=== PATIENT | female | born 1975 | race Caucasian/White ===

== ENCOUNTER 2018-05-28 16:23 | Outpatient (REF) | payer MEDICAID, SELFPAY ==
[2018-05-28 22:56] LABS: Abs Immature Grans 0.02 k/cumm (0.0-0.09); Absolute Basophil Count 0.03 k/cumm (0.0-0.2); Absolute Eosinophil Count 0.15 k/cumm (0.0-0.7); Absolute Lymphocyte Count 3.67 k/cumm (1.2-3.4); Absolute Monocyte Count 0.76 k/cumm (0.11-0.7); Absolute Neutrophil Count 4.81 k/cumm (1.2-6.7); Basophils % 0.3; Eosinophils % 1.6; HCT 41.4 % (36.0-46.0); Immature Grans % 0.2; Lymphocytes % 38.9; Mean Corp. HGB Concentration 33.8 g/dL (32.0-36.0); Mean Corpuscular Hemoglobin 29.9 pg (27.0-33.0); Mean Corpuscular Volume 88.5 fL (80-95); Mean Platelet Volume 11.6 fL (8.0-11.0); Monocytes % 8.1; Neutrophils % 50.9; Platelet Count 274 x1000/uL (130-400); RBC 4.68 m/cumm (4.00-5.20); RBC Distribution Width 13.2 % (11.7-14.6); White Blood Cell Count 9.44 k/cumm (4.4-10.8)
[2018-05-28 23:09] LABS: Anion Gap 8.4 mmol/L (3-11); BUN 7 mg/dL (7-18); CO2 29.6 mmol/L (21.0-32.0); CREATININE 0.96 mg/dL (0.55-1.02); Calcium 9.3 mg/dL (8.5-10.1); Chloride 102 mmol/L (98-107); Glucose 70 mg/dL (70-100); Potassium 3.6 mmol/L (3.5-5.1); Sodium 140 mmol/L (136-145); TSH 2.66 uIU/mL (0.358-3.74)
== END 2018-05-28 16:43 ==
LOC: NCHCN 16:23
PROVIDERS: PCP Family Medicine; Visit Provider Family Medicine
DX: F11.21 Opioid dependence, in remission (principal); R00.2 Palpitations; R10.31 Right lower quadrant pain
CPT/HCPCS: 80048; 83735; 84443; 85025

== ENCOUNTER 2019-06-18 10:37 | Outpatient (REF) | payer MEDICAID, SELFPAY ==
[2019-06-18 21:31] LABS: Abs Immature Grans 0.01 k/cumm (0.0-0.09); Absolute Basophil Count 0.06 k/cumm (0.0-0.2); Absolute Eosinophil Count 0.13 k/cumm (0.0-0.7); Absolute Lymphocyte Count 1.45 k/cumm (1.2-3.4); Absolute Monocyte Count 0.61 k/cumm (0.11-0.7); Eosinophils % 2.2; HCT 38.8 % (36.0-46.0); HGB 12.9 g/dL (12.0-15.5); Immature Grans % 0.2; Lymphocytes % 24.7; Mean Corp. HGB Concentration 33.2 g/dL (32.0-36.0); Mean Corpuscular Hemoglobin 29.7 pg (27.0-33.0); Mean Corpuscular Volume 89.4 fL (80-95); Mean Platelet Volume 12.2 fL (8.0-11.0); Monocytes % 10.4; Neutrophils % 61.5; Platelet Count 235 x1000/uL (130-400); RBC 4.34 m/cumm (4.00-5.20); RBC Distribution Width 13.1 % (11.7-14.6); White Blood Cell Count 5.86 k/cumm (4.4-10.8)
[2019-06-18 22:00] LABS: ALT 34 U/L (14-59); AST 36 U/L (15-37); Albumin 3.6 g/dL (3.4-5.0); Alkaline Phosphatase 92 U/L (46-116); Anion Gap 8.2 mmol/L (3-11); BUN 12 mg/dL (7-18); Bilirubin, Total 0.3 mg/dL (0.2-1.0); C-Reactive Protein 0.53 mg/dL (0.0-0.3); CO2 27.8 mmol/L (21.0-32.0); CREATININE 0.93 mg/dL (0.55-1.02); Calcium 8.9 mg/dL (8.5-10.1); Chloride 105 mmol/L (98-107); Glucose 102 mg/dL (70-100); Potassium 4.1 mmol/L (3.5-5.1); Sodium 141 mmol/L (136-145)
[2019-06-18 22:32] LABS: ESR 17 mm/hr (0-20)
[2019-06-22 11:35] LABS: Hepatitis C Ab w Rflx HCV PCR Negative (NEGAT)
[2019-06-22 12:39] LABS: HIV-1/2 Ag & Ab Screen Negative (NEGAT)
== END 2019-06-18 10:57 ==
LOC: NCHCN 10:37
PROVIDERS: PCP Family Medicine; Visit Provider Family Medicine
DX: R63.4 Abnormal weight loss (principal); E03.9 Hypothyroidism, unspecified; F11.21 Opioid dependence, in remission; Z11.4 Encounter for screening for human immunodeficiency virus [HIV]; Z11.59 Encounter for screening for other viral diseases
CPT/HCPCS: 80053; 85652; 86803; 87389; 84443; 85025; 86140

== ENCOUNTER 2020-01-26 11:40 | Outpatient (REF) | payer MEDICAID, SELFPAY ==
[2020-01-26 21:10] LABS: ALT 63 U/L (14-59); AST 50 U/L (15-37); Albumin 3.5 g/dL (3.4-5.0); Alkaline Phosphatase 105 U/L (46-116); Anion Gap 9.2 mmol/L (3-11); BUN 9 mg/dL (7-18); Bilirubin, Total 0.3 mg/dL (0.2-1.0); CO2 26.8 mmol/L (21.0-32.0); CREATININE 1.03 mg/dL (0.55-1.02); Calcium 8.9 mg/dL (8.5-10.1); Chloride 102 mmol/L (98-107); Estimated GFR 58.76 (mL/min/1.73m2); Glucose 121 mg/dL (74-106); Magnesium 1.8 mg/dL (1.8-2.4); Potassium 4.3 mmol/L (3.5-5.1); Sodium 138 mmol/L (136-145); TSH 1.66 uIU/mL (0.36-3.74); Total Protein 6.7 g/dL (6.4-8.2)
[2020-01-28 06:44] LABS: Vitamin D 25 Total 97.3 ng/ml (30-100)
== END 2020-01-26 12:00 ==
LOC: NCHCN 11:40
PROVIDERS: PCP Family Medicine; Visit Provider Nurse Practitioner Family
DX: R00.2 Palpitations (principal); F41.1 Generalized anxiety disorder
CPT/HCPCS: 80053; 82306; 83735; 84443

== ENCOUNTER 2020-02-18 12:45 | Outpatient (REF) | payer MEDICAID, SELFPAY ==
[2020-02-18 20:59] LABS: ALT 29 U/L (14-59); AST 23 U/L (15-37); Alkaline Phosphatase 81 U/L (46-116); Anion Gap 10.4 mmol/L (3-11); BUN 9 mg/dL (7-18); Bilirubin, Total 0.3 mg/dL (0.2-1.0); CO2 26.6 mmol/L (21.0-32.0); CREATININE 1.15 mg/dL (0.55-1.02); Calcium 9.1 mg/dL (8.5-10.1); Chloride 104 mmol/L (98-107); Estimated GFR 51.75 (mL/min/1.73m2); Glucose 125 mg/dL (74-106); Potassium 4.3 mmol/L (3.5-5.1); Sodium 141 mmol/L (136-145); Total Protein 7.4 g/dL (6.4-8.2)
[2020-02-22 11:32] LABS: HIV-1/2 Ag & Ab Screen Negative (Negative)
[2020-02-22 11:37] LABS: Hepatitis C Ab w Rflx HCV PCR Negative (Negative)
== END 2020-02-18 13:05 ==
LOC: NCHCN 12:45
PROVIDERS: PCP Family Medicine; Visit Provider Family Medicine
DX: F11.21 Opioid dependence, in remission (principal); Z11.4 Encounter for screening for human immunodeficiency virus [HIV]; Z11.59 Encounter for screening for other viral diseases
CPT/HCPCS: 80053; 86803; 87389

== ENCOUNTER 2020-04-07 16:44 | Outpatient (REF) | payer MEDICAID, SELFPAY ==
[2020-04-07 22:06] LABS: Calculated LDL 139 mg/dL (<100); Cholesterol 204 mg/dL (<200); HDL Cholesterol 47 mg/dL (40-60); Triglyceride 93 mg/dL (<150)
[2020-04-11 12:46] LABS: IgA 331 mg/dL (85-499); Interpretation (See Note); Tissue Transglutaminase IgA <1.2 U/mL (<4.0)
== END 2020-04-07 17:04 ==
LOC: NCHCN 16:44
PROVIDERS: PCP Family Medicine; Visit Provider Family Medicine
DX: R13.10 Dysphagia, unspecified (principal); R07.9 Chest pain, unspecified
CPT/HCPCS: 80061; 82784; 83516

== ENCOUNTER 2020-06-16 17:50 | Outpatient (REF) | payer MEDICAID, SELFPAY ==
[2020-06-16 21:58] LABS: Vitamin D 25 Total 72.5 ng/ml (30-100)
[2020-06-16 22:03] LABS: Potassium 4.2 mmol/L (3.5-5.1); Vitamin B12 639 pg/mL (193-986)
== END 2020-06-16 18:10 ==
LOC: NCHCN 17:50
PROVIDERS: PCP Family Medicine; Visit Provider Family Medicine
DX: E87.6 Hypokalemia (principal); E55.9 Vitamin D deficiency, unspecified; R25.2 Cramp and spasm; N95.1 Menopausal and female climacteric states
CPT/HCPCS: 82306; 82607; 83735; 84132

== ENCOUNTER 2021-01-20 15:05 | Outpatient (REF) | payer MEDICAID, SELFPAY ==
[2021-01-20 13:31] LABS: Abs Immature Grans 0.01 10^3/uL (0.0-0.06); Absolute Basophil Count 0.05 10^3/uL (0.0-0.2); Absolute Eosinophil Count 0.27 10^3/uL (0.0-0.7); Absolute Lymphocyte Count 2.41 10^3/uL (1.2-3.4); Absolute Monocyte Count 0.69 10^3/uL (0.1-0.8); Absolute Neutrophil Count 5.33 10^3/uL (1.2-6.7); Basophils % 0.6; Eosinophils % 3.1; HCT 39.6 % (36.0-46.0); Immature Grans % 0.1; Lymphocytes % 27.5; MCH 29.5 pg (27.0-33.0); MCHC 32.8 % (32.0-36.0); MCV 89.8 fL (80-95); MPV 12.1 fL (8.0-11.0); Monocytes % 7.9; Neutrophils % 60.8; Nucleated RBC 0 %; Platelet Count 270 10^3/uL (130-400); RBC 4.41 10^6/uL (3.93-5.22); RDW-SD 42.6 fL; WBC 8.76 10^3/uL (4.4-10.8)
[2021-01-20 14:36] LABS: Anion Gap 9.1 mmol/L (3-11); BUN 8 mg/dL (7-18); CO2 27.9 mmol/L (21.0-32.0); Chloride 104 mmol/L (98-107); Glucose 96 mg/dL (74-106); Potassium 4.4 mmol/L (3.5-5.1); Sodium 141 mmol/L (136-145); TSH 1.07 uIU/mL (0.36-3.74)
== END 2021-01-20 15:06 | disposition home or self-care (01) ==
LOC: NCHCN 15:05
PROVIDERS: PCP Family Medicine; Visit Provider Family Medicine
DX: E03.9 Hypothyroidism, unspecified (principal); D72.819 Decreased white blood cell count, unspecified; N18.30 Chronic kidney disease, stage 3 unspecified
CPT/HCPCS: 80048; 84443; 85025

== ENCOUNTER 2021-09-26 15:20 | Outpatient (REF) | payer MEDICAID, SELFPAY ==
[2021-09-26 17:01] LABS: Anion Gap 7.7 mmol/L (3-11); BUN 11 mg/dL (7-18); CO2 28.3 mmol/L (21.0-32.0); Calcium 9.1 mg/dL (8.5-10.1); Chloride 103 mmol/L (98-107); Glucose 87 mg/dL (74-106); Potassium 4.1 mmol/L (3.5-5.1); Sodium 139 mmol/L (136-145); TSH 1.12 uIU/mL (0.36-3.74)
[2021-09-27 15:29] LABS: COVID-19 RT-PCR UVMMC Result Negative (Negative)
[2021-09-28 05:50] LABS: Vitamin D 25 Total 64.7 ng/mL (30-100)
== END 2021-09-26 15:21 | disposition home or self-care (01) ==
LOC: NCHCN 15:20
PROVIDERS: PCP Family Medicine; Visit Provider Family Medicine
DX: J06.9 Acute upper respiratory infection, unspecified (principal); E03.9 Hypothyroidism, unspecified; E55.9 Vitamin D deficiency, unspecified; Z20.822 Contact with and (suspected) exposure to COVID-19
CPT/HCPCS: 80048; 82306; U0003; 84443

== ENCOUNTER 2022-03-06 02:50 | Emergency (ER) | payer MEDICAID, SELFPAY ==
[2022-03-06 02:58] VITALS: BP 172/84; PULSE 75; RESP 20; TEMP 36.7; O2SAT 100
--- NOTE | 2022-03-06 03:15 | RT.EKG_ITS ---
APPROVED REPORT Exam: Resting ECG Reason for Exam: vomiting, chest pain Patient Location: E HR:71 bpm ECG Measurements Heart Rate 71 AXIS GA 125 P 43 QRSd 86 QRS 77 QT 440 T 50 QTc 478 Conclusion Sinus rhythm...normal P axis, V-rate 60- 99 Physician: no stemi, stable
--- NOTE | 2022-03-06 03:19 | ED.GENADUL_ITS ---
Discharge Plan Disposition Patient Disposition: HOME Condition: Good Discharge Details Clinical Impression: Cannabinoid hyperemesis syndrome Primary Care Provider: Donal Goff ED Provider: Juan Carlos Blum Home Meds and New Rx's Prescriptions: No Action ibuprofen [Advil] 200 MG tablet 600 mg PO Q6H PRN PRN penicillin V potassium 500 MG tablet 500 mg PO QID Qty: 40 0RF hydrocodone-acetaminophen 1 TAB tablet 1 tab PO Q4H PRN PRNQty: 7 0RF Discharge Instructions Instructions: Acute Nausea and Vomiting (ED) Additional Instructions: At this time your symptoms appear consistent with cannabinoid hyperemesis syndrome. Please stick with a bland diet, drink plenty of fluids. If you develop any fever, cough, or worsening chest pain please return for reassessment. If you notice any worsening of your symptoms, or any new symptoms such as vomiting, diarrhea, fever, chills, shortness of breath, chest pain, numbness, weakness, or fainting , please return immediately to the emergency department for reevaluation. Please follow up with your primary care provider as soon as possible for reassessment and reevaluation. As always, it was a pleasure participating in your medical care today. Referrals: Donal Goff [Primary Care Provider] - Medical Decision Making This is a 46-year-old female with a past medical history of hysterectomy, regular marijuana use, methadone use, who presents today for retching and vomiting. Patient states that she recently finished a sealant prescription for dental caries few days ago, she was asymptomatic after that, however at about 10 PM tonight she began having vomiting and diarrhea. She has been unable to stop retching since then. She has had some mild shaking but denies any fever. She admits to mild chest tightness, but denies any tearing or ripping sensation. She denies any alcohol use, but does admit to drinking just a little bit at a wedding a few days ago. She denies any IV or illicit drug otherwise. She denies any other sick contacts. She denies having symptoms like this before. No other complaints at this time. No other modifying factors. Exam demonstrates dry mucous membranes, actively retching female. No blood in her vomitus. For that matter she does not have any vomitus currently. No abdominal pain or tenderness. Differential is highest for gastroenteritis, cyclic vomiting syndrome, with her chest pain a cardiac etiology is certainly on the differential but less likely. Symptoms appear clinically inconsistent with dissection or aneurysm. She has had a hysterectomy, is not on the differential clearly. We will rehydrate, give Compazine and Zofran, evaluate for these etiologies, monitor closely and reassess. With no abdominal pain or bloating whatsoever her symptoms appear inconsistent with small bowel obstruc tion. No indication for emergent imaging currently. 4:04 AM On reassessment patient is feeling much better. She still has some mild chest achiness, but the vomiting and retching has stopped. Laboratory work-up shows mild white count, no bandemia. Electrolytes are stable. Troponin is normal. EKG is unremarkable. No evidence of STEMI. Symptoms at this time are consistent with cyclic vomiting syndrome/cannabinoid hyperemesis syndrome. We will wait for fluids to finish, chest x-ray results return, then expect she will be stable for discharge with her notable improvement so far. 7:13 AM Repeat troponin has returned normal. Patient is able to tolerate p.o. She feels much better. She has been sleeping well. She has been rehydrated with 2 L of normal saline. Chest x-ray shows no evidence of pneumomediastinum or other abnormality. Exam shows no evidence of pneumomediastinum or subcutaneous crepitus. Patient feels well feels comfortable going home. X-ray shows evidence of questionable mild bronchitis, however clinically the patient shows no complaint of this. No cough, no shortness of breath, no fever. No indication for antibiotics at this time. I did discuss with the patient red flags which would represent pneumonia. She understands. I have extensively reviewed the treatment plan and discharge instructions with the patient. I have addressed all patient concerns at this time. The patient was made aware of what symptoms to monitor for that would warrant a return to the emergency department. Discussed the plan with the patient, they demonstrate verbal understanding and agreement with our assessment and plan at this time. The documentation in this chart was dictated using [employer] dictation software. Please excuse any dictation errors. FINDINGS: Lungs: Question mild peribronchial thickening in the lower lobes and minimal subsegmental atelectasis. No consolidation. Pleural spaces: No pleural effusion. No pneumothorax. Heart/Mediastinum: No cardiomegaly. Bones/joints: Unremarkable. IMPRESSION: Question mild bronchitis/interstitial pneumonitis and minimal basilar subsegmental atelectasis Thank you for allowing us to participate in the care of your patient. Dictated and Authenticated by: Michael Phillips MD 03/06/2022 6:11 AM Eastern Time ([place] & [place]) HPI General Date/Time Provider Initiated Documentation: 03/06/22 03:11 . HPI Narrative: This is a 46-year-old female with a past medical history of hysterectomy, regular marijuana use, methadone use, who presents today for retching and vomiting. Patient states that she recently finished a sealant prescription for dental caries few days ago, she was asymptomatic after that, however at about 10 PM tonight she began having vomiting and diarrhea. She has been unable to stop retching since then. She has had some mild shaking but denies any fever. She admits to mild chest tightness, but denies any tearing or ripping sensation. She denies any alcohol use, but does admit to drinking just a little bit at a wedding a few days ago. She denies any IV or illicit drug otherwise. She denies any other sick contacts. She denies having symptoms like this before. No other complaints at this time. No other modifying factors. Related Data Home Medications Medication Instructions Recorded Confirmed hydrocodone 5 mg-acetaminophen 325 1 tab PO Q4H PRN PRN #7 tabs 01/13/13 mg tablet ibuprofen 200 mg tablet (Advil) 600 mg PO Q6H PRN PRN 01/13/13 03/06/22 penicillin V potassium 500 mg 500 mg PO QID #40 tabs 01/13/13 tablet Previous Rx's Medication Instructions Recorded hydrocodone 5 mg-acetaminophen 325 1 tab PO Q4H PRN PRN #7 tabs 01/13/13 mg tablet penicillin V potassium 500 mg 500 mg PO QID #40 tabs 01/13/13 tablet Allergies Allergy/AdvReac Type Severity Reaction Status Date / Time strawberries Allergy Intermediate Hives Uncoded 03/06/22 03:02 General Stated Complaint: Nausea/Vomit/Diar YOGI: 3 Review of Systems All systems reviewed & are unremarkable except as noted in HPI and below PFSH All Active Problems (Updated 03/06/22 @ 05:12 by Juan Carlos Blum DO) Cannabinoid hyperemesis syndrome (Acute) Social History (Reviewed 03/06/22 @ 03:21 by CHELSEA Long Smoking/Tobacco Use Status: Current every day Tobacco Type: cigarettes Smoking risk assessment performed?: Yes Alcohol Intake: current Alcohol Intake frequency: holidays/special occasions only Drug use: Daily Substance use type: marijuana Do you feel safe at home: Yes Do you feel safe in your relationship?: Yes Exam Narrative Exam Narrative: 1.Const: Well-nourished, Well-developed, appearing stated age 2.Eyes: PERRL, no conjunctival injection, and symmetrical lids. 3.ENT: Atraumatic external nose and ears. Dry MM. Neck: Symmetric, trachea midline, No thyromegaly. 4.CVS: +S1/S2, No murmurs or gallops. Peripheral pulses 2+ and equal in all extremities. Brisk capillary refill in all extremities. 5.RESP: Unlabored respiratory effort. Clear to auscultation bilaterally. No wheezes rales or rhonchi 6.GI: Soft, Nontender/Nondistended, No hepatosplenomegaly. No guarding or rebound. Actively retching no pain McBurney's point. Negative Patrick sign. 7.MSK: Normocephalic/Atraumatic, Extremities w/o deformity or ttp No cyanosis or clubbing, Normal movement of all extremities 8.Skin: Warm, Dry. No rashes or lesions. 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 Sensation grossly intact, no focal neurologic deficits. 10.Psych: (AAO) x3. Appropriate mood and affect Course Vital Signs Vital signs: Vital Signs Temperature 36.7 C 03/06/22 02:58 Pulse 75 03/06/22 02:58 Respiratory Rate 20 03/06/22 02:58 Blood Pressure 172/84 H 03/06/22 02:58 Pulse Oximetry 100 03/06/22 02:58 Temperature 36.7 C 03/06/22 02:58 Temperature Source Oral 03/06/22 02:58 Pulse 75 03/06/22 02:58 Respiratory Rate 20 03/06/22 02:58 Respiratory Effort 03/06/22 03:05 Blood Pressure 172/84 H 03/06/22 02:58 Blood Pressure Position Sitting 03/06/22 02:58 Pulse Oximetry 100 03/06/22 02:58 Oxygen Delivery Method Room Air 06/28/22 02:58 Oxygen Flow Rate 0 03/06/22 02:58 Pain Level 8 03/06/22 02:58 PAWSS Have you Been Recently Intoxicated or Drunk Within the Last 30 days?: No Have you Ever Experienced Previous Episodes of Alcohol Withdrawal?: No Have you ever Experienced Withdrawal Seizures?: No Have you ever Experienced Delirium Tremens(DT)s?: No Have you ever undergone Alcohol Rehabilitation Treatment (i.e, inpt ot outpatient treatment programs)?: No Have you ever Experienced Blackouts?: No Have you ever Combined Alcohol with other Downers within the last 90 days?: No Have you ever Combined Alcohol with any other Substance of Abuse during the last 90 days?: No Positive Blood Alcohol level on Presentation? [PCS.BAL]: No Evidence of Increased Autonomic Activity (i.e. HR>120, tremor, sweating, agitation, nausea)?: No Result: 0
[2022-03-06] MEDS: Prochlorperazine 10 MG/2 ML VIAL IVP (03:25)
[2022-03-06] MEDS: Ondansetron 4 MG/2 ML VIAL IVP (03:25)
[2022-03-06] MEDS: Normal Saline 1,000 ML 1000 ML IV ×2 (03:25→05:15)
[2022-03-06 03:32] LABS: Abs Immature Grans 0.07 10^3/uL (0.0-0.06); Absolute Basophil Count 0.08 10^3/uL (0.0-0.2); Absolute Lymphocyte Count 2.11 10^3/uL (1.2-3.4); Basophils % 0.5; Eosinophils % 0.6; HCT 39.7 % (36.0-46.0); HGB 13.3 g/dL (11.2-15.7); Immature Grans % 0.4; Lymphocytes % 12.6; MCH 29.2 pg (27.0-33.0); MCHC 33.5 % (32.0-36.0); MCV 87 fL (80-95); Monocytes % 7.3; Neutrophils % 78.6; Platelet Count 350 10^3/uL (130-400); RBC 4.55 10^6/uL (3.93-5.22); RDW 12.8 % (11.7-14.6); RDW-SD 40.6 fL; WBC 16.75 10^3/uL (4.4-10.8)
[2022-03-06 03:38] LABS: Absolute Monocyte Count 1.22 10^3/uL (0.1-0.8); Absolute Neutrophil Count 13.17 10^3/uL (1.2-6.7)
[2022-03-06 03:43] LABS: ALT 32 U/L (14-59); AST 31 U/L (15-37); Albumin 3.7 g/dL (3.4-5.0); Alkaline Phosphatase 98 U/L (46-116); Anion Gap 10.3 mmol/L (3-11); BUN 11 mg/dL (7-18); Bilirubin, Total 0.2 mg/dL (0.2-1.0); CO2 26.7 mmol/L (21.0-32.0); CREATININE 1.1 mg/dL (0.55-1.02); Calcium 8.9 mg/dL (8.5-10.1); Chloride 104 mmol/L (98-107); Estimated GFR 53.96 (mL/min/1.73m2); Glucose 146 mg/dL (74-106); Potassium 3.4 mmol/L (3.5-5.1); Sodium 141 mmol/L (136-145); Total Protein 7.6 g/dL (6.4-8.2); Troponin I < 50 ng/L (<or=60)
[2022-03-06 03:50] LABS: Lipase 79 U/L (73-393)
--- NOTE | 2022-03-06 04:00 | DI.RAD_ITS ---
Exam(s) XR PORTABLE CHEST AP EXAM: XR PORTABLE CHEST AP CLINICAL HISTORY: vomiting, central chest pain, eval for pneumomedia TECHNIQUE: 2D digital imaging was performed of the chest. One image was obtained. An AP view was ob tained. COMPARISON: No exams were available for comparison FINDINGS: MEDIASTINUM: Normal. HEART: Normal. PULMONARY VASCULATURE: Normal. LUNGS: Clear. PLEURAL SPACE: No pleural effusion or pneumothorax. BONE:Within normal limits for the patient's age. OTHER FINDINGS:Normal. IMPRESSION: No acute pulmonary findings. DATA REPOSITORY: RADIATION DOSE DELIVERED:
[2022-03-06 04:27] VITALS: BP 136/74; PULSE 66; RESP 16; TEMP 36.4; O2SAT 100
[2022-03-06] MEDS: Sucralfate 1 GM TAB PO (05:15)
--- NOTE | 2022-03-06 06:11 | DI.VRAD_ITS ---
PROCEDURE INFORMATION: Exam: XR Chest Exam date and time: 03/06/2022 3:57 AM Age: 46 years old Clinical indication: Patient HX: Vomiting, central chest pain, eval for pneumomedia TECHNIQUE: Imaging protocol: Radiologic exam of the chest. Views: 1 view. COMPARISON: No relevant prior studies available. FINDINGS: Lungs: Question mild peribronchial thickening in the lower lobes and minimal subsegmental atelectasis. No consolidation. Pleural spaces: No pleural effusion. No pneumothorax. Heart/Mediastinum: No cardiomegaly. Bones/joints: Unremarkable. IMPRESSION: Question mild bronchitis/interstitial pneumonitis and minimal basilar subsegmental atelectasis Dictated and Authenticated by: Michael Phillips MD. Ordering:LISS Rangel MD
[2022-03-06 06:17] VITALS: BP 134/83; PULSE 60; RESP 16; TEMP 36.6; O2SAT 99
[2022-03-06 06:52] LABS: Troponin I < 50 ng/L (<or=60)
[2022-03-06 07:13] VITALS: BP 127/72; PULSE 67; RESP 14; TEMP 36.5; O2SAT 100
== END 2022-03-06 07:27 | disposition home or self-care (01) ==
LOC: ER 07:02
PROVIDERS: Emergency Provider Student in an Organized Health Care Education/Training Program; PCP Family Medicine
DX: R11.10 Vomiting, unspecified (principal); F12.90 Cannabis use, unspecified, uncomplicated; R07.9 Chest pain, unspecified
CPT/HCPCS: 36415; 80053; 83690; 93005; 96361; 96374; 96375; 99284; 71045; 84484; 85025; 93010; J0780; J2405

== ENCOUNTER 2022-05-14 02:03 | Emergency (ER) | payer MEDICAID, SELFPAY ==
--- NOTE | 2022-05-14 02:00 | RT.EKG_ITS ---
APPROVED REPORT Exam: Resting ECG Reason for Exam: chest pain Patient Location: E HR:56 bpm ECG Measurements Heart Rate 56 AXIS PA 135 P 73 QRSd 81 QRS 76 QT 500 T 67 QTc 484 Conclusion Sinus bradycardia...rate< 60 Physician: no stemi, stable
[2022-05-14 02:08] VITALS: BP 158/124; PULSE 94; RESP 18; TEMP 36.2; O2SAT 98
--- NOTE | 2022-05-14 02:13 | ED.GENADUL_ITS ---
Discharge Plan Disposition Patient Disposition: HOME Condition: Good Discharge Details Clinical Impression: Nausea & vomiting Primary Care Provider: Donal Goff ED Provider: Juan Carlos Blum Home Meds and New Rx's Prescriptions: No Action ibuprofen [Advil] 200 MG tablet 600 mg PO Q6H PRN PRN penicillin V potassium 500 MG tablet 500 mg PO QID Qty: 40 0RF hydrocodone-acetaminophen 1 TAB tablet 1 tab PO Q4H PRN PRNQty: 7 0RF buprenorphine HCl [Subutex] 8 mg Tablet, Sublingual 12 mg SUBLINGUAL DAILY Discharge Instructions Instructions: Acute Nausea and Vomiting (ED) Additional Instructions: At this time your symptoms have notably improved. Please stick with a bland diet for the next 2 to 3 days. Avoid any spicy or greasy foods. Continue to do your best to avoid marijuana. It takes about 30 days for the marijuana to completely come out of your system. If you notice any worsening of your symptoms, or any new symptoms such as vomiting, diarrhea, fever, chills, shortness of breath, chest pain, numbness, weakness, or fainting , please return immediately to the emergency department for reevaluation. Please follow up with your primary care provider as soon as possible for reassessment and reevaluation. As always, it was a pleasure participating in your medical care today. Referrals: Donal Goff [Primary Care Provider] - Medical Decision Making 47-year-old female with a past medical history of hysterectomy, previous marijuana use that she stopped about 18 days ago, previous methadone use, history of cyclic vomiting syndrome, who presents today for retching and vomiting. Patient states that at about 10 PM this evening which was 4 hours ago she began to suddenly experience nausea vomiting and retching. She has been retching continuously since then. She denies any more vomiting at this time. No blood in her vomitus. She denies any numbness or tingling. She does admit to some mild chest achiness but denies any tearing or ripping sensation. Nothing has made her symptoms better at home. She came to the ER for further assessment. Physical exam demonstrates an actively retching female, dry mucous membranes. No focal abdominal tenderness. Differential is highest for cyclic vomiting syndrome similar to her last visit. Symptoms appear inconsistent with cardiac etiology. Pancreatitis is on the differential but she denies any alcohol use. We will give droperidol, rehydrate, monitor closely and reassess. Isabell-Badillo tear or Boerhaave's is unlikely given no subcutaneous crepitus, however out of an abundance of precaution we will get a portable chest x-ray to evaluate for air. Symptoms seem inconsistent with ileus or obstruction she has no abdominal distention or abdominal pain. 4 AM On reassessment patient has complete resolution of her symptoms. She feels well, chest pain is improved, she feels ready go home and she is asking to be discharged. Mildly elevated white count, appropriate in the setting of vomitin g. Repeat exam shows no signs of an acute surgical abdomen abdominal pain whatsoever. Lipase is normal, troponin normal, EKG benign. Symptoms appear consistent with cyclic vomiting syndrome. Will recommend continued bland diet at home. Droperidol seems to have been very effective for the patient on this episode. Discussed red flags for which to return. Chest pain inconsistent with ACS, dissection or PE. Chest x-ray negative. I have extensively reviewed the treatment plan and discharge instructions with the patient. I have addressed all patient concerns at this time. The patient was made aware of what symptoms to monitor for that would warrant a return to the emergency department. Discussed the plan with the patient, they demonstrate verbal understanding and agreement with our assessment and plan at this time. The documentation in this chart was dictated using [employer] dictation software. Please excuse any dictation errors. FINDINGS: Lungs: Unremarkable. No consolidation. Pleural spaces: Unremarkable. No pleural effusion. No pneumothorax. Heart/Mediastinum: Unremarkable. No cardiomegaly. Bones/joints: Unremarkable. IMPRESSION: No acute findings. Thank you for allowing us to participate in the care of your patient. Dictated and Authenticated by: Bennett Lynch MD 05/14/2022 3:28 AM Eastern Time ([place] & [place]) HPI General Date/Time Provider Initiated Documentation: 05/14/22 02:08 . HPI Narrative: 47-year-old female with a past medical history of hysterectomy, previous marijuana use that she stopped about 18 days ago, previous methadone use, history of cyclic vomiting syndrome, who presents today for retching and vomiting. Patient states that at about 10 PM this evening which was 4 hours ago she began to suddenly experience nausea vomiting and retching. She has been retching continuously since then. She denies any more vomiting at this time. No blood in her vomitus. She denies any numbness or tingling. She does admit to some mild chest achiness but denies any tearing or ripping sensation. Nothing has made her symptoms better at home. She came to the ER for further assessment. Related Data Home Medications Medication Instructions Recorded Confirmed hydrocodone 5 mg-acetaminophen 325 1 tab PO Q4H PRN PRN #7 tabs 01/13/13 mg tablet ibuprofen 200 mg tablet (Advil) 600 mg PO Q6H PRN PRN 01/13/13 03/06/22 penicillin V potassium 500 mg 500 mg PO QID #40 tabs 01/13/13 tablet buprenorphine HCl 8 mg sublingual 12 mg sublingual DAILY 05/14/22 05/14/22 tablet Previous Rx's Medication Instructions Recorded hydrocodone 5 mg-acetaminophen 325 1 tab PO Q4H PRN PRN #7 tabs 01/13/13 mg tablet penicillin V potassium 500 mg 500 mg PO QID #40 tabs 01/13/13 tablet Allergies Allergy/AdvReac Type Severity Reaction Status Date / Time strawberries Allergy Intermediate Hives Uncoded 05/14/22 02:13 General Stated Complaint: Nausea/Vomit/Diar YOGI: 3 Review of Systems All systems reviewed & are unremarkable except as noted in HPI and below PFSH All Active Problems (Updated 05/14/22 @ 04:00 by Juan Carlos Blum DO) Nausea & vomiting (Acute) Social History Smoking/Tobacco Use Status: Current every day Tobacco Type: cigarettes Smoking risk assessment performed?: Yes Alcohol Intake: current Alcohol Intake frequency: holidays/special occasions only Drug use: Daily Substance use type: marijuana Details: States she stopped 18 days ago Do you feel safe at home: Yes Do you feel safe in your relationship?: Yes Exam Narrative Exam Narrative: 1.Const: Well-nourished, Well-developed, appearing stated age 2.Eyes: PERRL, no conjunctival injection, and symmetrical lids. 3.ENT: Atraumatic external nose and ears. Dry MM. Neck: Symmetric, trachea midline, No thyromegaly. No subcutaneous crepitus in the neck or on the chest. 4.CVS: +S1/S2, No murmurs or gallops. Peripheral pulses 2+ and equal in all extremities. Brisk capillary refill in all extremities. 5.RESP: Unlabored respiratory effort. Clear to auscultation bilaterally. No wheezes rales or rhonchi 6.GI: Soft, Nontender/Nondistended, No hepatosplenomegaly. No guarding or rebound. No pain at McBurney's point, negative Patrick sign. 7.MSK: Normocephalic/Atraumatic, Extremities w/o deformity or ttp No cyanosis or clubbing, Normal movement of all extremities 8.Skin: Warm, Dry. No rashes or lesions. 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 Sensation grossly intact, no focal neurologic deficits. 10.Psych: (AAO) x3. Appropriate mood and affect Course Vital Signs Vital signs: Vital Signs Temperature 36.2 C L 05/14/22 02:08 Pulse 94 H 05/14/22 02:08 Respiratory Rate 18 05/14/22 02:08 Blood Pressure 158/124 H 05/14/22 02:08 Pulse Oximetry 98 05/14/22 02:08 Temperature 36.2 C L 05/14/22 02:08 Pulse 94 H 05/14/22 02:08 Respiratory Rate 18 05/14/22 02:08 Respiratory Effort Non-Labored 05/14/22 02:11 Blood Pressure 158/124 H 05/14/22 02:08 Blood Pressure Position Sitting 05/14/22 02:08 Pulse Oximetry 98 05/14/22 02:08 Oxygen Delivery Method Room Air 05/14/22 02:08 Oxygen Flow Rate 0 05/14/22 02:08 Pain Level 10 05/14/22 02:08
--- NOTE | 2022-05-14 02:15 | DI.RAD_ITS ---
Exam(s) XR PORTABLE CHEST AP EXAM: XR PORTABLE CHEST AP CLINICAL HISTORY: vomiting, retching, rule out mediastinal air TECHNIQUE: 2D digital imaging was performed. COMPARISON: CR,XR XR PORTABLE CHEST AP from 03/06/2022 FINDINGS: LUNGS: Clear. No pleural abnormality seen. HEART: Normal. AORTA: Normal. BONES: Unremarkable for age. Soft tissues: Unremarkable. IMPRESSION: No acute findings. DATA REPOSITORY: RADIATION DOSE DELIVERED:
[2022-05-14] MEDS: Droperidol 5 MG/2 ML VIAL 1.25 MG IVP (02:32)
[2022-05-14] MEDS: Normal Saline 1,000 ML 1000 ML IV (02:32)
[2022-05-14 02:37] LABS: Abs Immature Grans 0.06 10^3/uL (0.0-0.06); Absolute Basophil Count 0.07 10^3/uL (0.0-0.2); Absolute Eosinophil Count 0.04 10^3/uL (0.0-0.7); Absolute Neutrophil Count 11.81 10^3/uL (1.2-6.7); Basophils % 0.5; Eosinophils % 0.3; HCT 39.9 % (36.0-46.0); HGB 13.9 g/dL (11.2-15.7); Immature Grans % 0.4; Lymphocytes % 11.6; MCH 29.8 pg (27.0-33.0); MCHC 34.8 % (32.0-36.0); MCV 85 fL (80-95); MPV 10.8 fL (8.0-11.0); Monocytes % 6.8; Neutrophils % 80.4; Platelet Count 339 10^3/uL (130-400); RBC 4.67 10^6/uL (3.93-5.22); RDW 11.9 % (11.7-14.6); RDW-SD 37.3 fL; WBC 14.69 10^3/uL (4.4-10.8)
[2022-05-14 02:51] LABS: ALT 50 U/L (14-59); AST 50 U/L (15-37); Albumin 4.1 g/dL (3.4-5.0); Alkaline Phosphatase 132 U/L (46-116); Anion Gap 14.7 mmol/L (3-11); BUN 14 mg/dL (7-18); Bilirubin, Total 0.3 mg/dL (0.2-1.0); CO2 24.3 mmol/L (21.0-32.0); CREATININE 1.3 mg/dL (0.55-1.02); Calcium 9.4 mg/dL (8.5-10.1); Chloride 103 mmol/L (98-107); Estimated GFR 51.68 (mL/min/1.73m2); Glucose 149 mg/dL (74-106); Lipase 59 U/L (73-393); Potassium 3.5 mmol/L (3.5-5.1); Sodium 142 mmol/L (136-145); Total Protein 8.3 g/dL (6.4-8.2); Troponin I < 50 ng/L (<or=60)
--- NOTE | 2022-05-14 03:28 | DI.VRAD_ITS ---
PROCEDURE INFORMATION: Exam: XR Chest Exam date and time: 05/14/2022 2:32 AM Age: 47 years old Clinical indication: Other: Vomiting, retching, rule out mediastinal air TECHNIQUE: Imaging protocol: Radiologic exam of the chest. Views: 1 view. COMPARISON: XR PORTABLE CHEST AP 03/06/2022 3:57 AM FINDINGS: Lungs: Unremarkable. No consolidation. Pleural spaces: Unremarkable. No pleural effusion. No pneumothorax. Heart/Mediastinum: Unremarkable. No cardiomegaly. Bones/joints: Unremarkable. IMPRESSION: No acute findings. Dictated and Authenticated by: Bennett Lynch MD. Ordering:LISS Rangel MD
[2022-05-14 04:18] VITALS: BP 141/75; PULSE 56; RESP 16; O2SAT 95
== END 2022-05-14 04:22 | disposition home or self-care (01) ==
PROVIDERS: Emergency Provider Student in an Organized Health Care Education/Training Program; PCP Family Medicine
DX: R11.2 Nausea with vomiting, unspecified (principal); D72.829 Elevated white blood cell count, unspecified; F17.210 Nicotine dependence, cigarettes, uncomplicated
CPT/HCPCS: 80053; 83690; 93005; 96361; 96374; 99284; 71045; 84484; 85025; 93010; J1790

== ENCOUNTER 2022-09-23 07:47 | Emergency (ER) | payer MEDICAID, SELFPAY ==
[2022-09-23 08:06] VITALS: BP 139/87; PULSE 90; RESP 18; TEMP 36.7; O2SAT 96
--- NOTE | 2022-09-23 08:30 | RT.EKG_ITS ---
APPROVED REPORT Exam: Resting ECG Reason for Exam: chest pain Patient Location: E HR:89 bpm ECG Measurements Heart Rate 89 AXIS FL 154 P 77 QRSd 73 QRS 76 QT 354 T 53 QTc 431 Conclusion Sinus rhythm...normal P axis, V-rate 60- 99 sinus rhythm, normal axis, non ischemic
[2022-09-23 08:32] LABS: Bilirubin Negative (Negative); Blood Moderate (Negative); Clarity Cloudy (Clear); Glucose Negative (Negative); Ketones Negative (Negative); Leukocyte Esterase Small (Negative); Nitrite Positive (Negative); pH 7.5 (5-8)
[2022-09-23 08:33] LABS: Abs Immature Grans 0.06 10^3/uL (0.0-0.06); Absolute Basophil Count 0.07 10^3/uL (0.0-0.2); Absolute Lymphocyte Count 1.11 10^3/uL (1.2-3.4); Absolute Monocyte Count 1.31 10^3/uL (0.1-0.8); Absolute Neutrophil Count 13.97 10^3/uL (1.2-6.7); Basophils % 0.4; Eosinophils % 0.6; HCT 39.8 % (36.0-46.0); HGB 13.3 g/dL (11.2-15.7); Immature Grans % 0.4; Lymphocytes % 6.7; MCH 29.8 pg (27.0-33.0); MCHC 33.4 % (32.0-36.0); MCV 89 fL (80-95); MPV 10.2 fL (8.0-11.0); Monocytes % 7.9; Platelet Count 363 10^3/uL (130-400); RBC 4.46 10^6/uL (3.93-5.22); RDW 12.5 % (11.7-14.6); RDW-SD 41.2 fL; WBC 16.63 10^3/uL (4.4-10.8)
[2022-09-23 08:40] LABS: Bacteria Many HPF (Negative); C & S Indicated? Yes; Epithelial Cells Rare HPF (Negative); RBC 20-50 HPF (0-2)
[2022-09-23 08:52] LABS: ALT 108 U/L (14-59); AST 239 U/L (15-37); Albumin 3.9 g/dL (3.4-5.0); Alkaline Phosphatase 295 U/L (46-116); Anion Gap 6.7 mmol/L (3-11); BUN 9 mg/dL (7-18); Bilirubin, Total 0.4 mg/dL (0.2-1.0); CO2 29.3 mmol/L (21.0-32.0); CREATININE 1.1 mg/dL (0.55-1.02); Calcium 9.2 mg/dL (8.5-10.1); Chloride 101 mmol/L (98-107); Estimated GFR 63.15 (mL/min/1.73m2); Glucose 103 mg/dL (74-106); Lipase 59 U/L (73-393); Potassium 3.7 mmol/L (3.5-5.1); Sodium 137 mmol/L (136-145); Total Protein 8.2 g/dL (6.4-8.2)
[2022-09-23 08:58] LABS: Casts Negative LPF (Negative); Crystals Negative HPF (Negative); Mucus Negative (Negative)
--- NOTE | 2022-09-23 09:08 | DI.CT_ITS ---
Exam(s) CT ABDOMEN PELVIS WO EXAM: CT ABDOMEN PELVIS WO CLINICAL HISTORY: gross hematuria, right flank pain. TECHNIQUE: Imaging Protocol: Axial computed tomography images with coronal and sagittal reformatted images were created and reviewed. COMPARISON: No exams were available for comparison FINDINGS: ABDOMEN: Lung Bases: Normal where visualized. Liver: Normal density. No measurable mass. Gallbladder and biliary tract: No radiodense calculus or biliary ductal dilation. Pancreas: Normal density, no abnormal calcifications or inflammatory process. Spleen: Normal. Kidneys: Normal size, contour and axis.No radiodense stones or obstructive uropathy. No masses seen. Adrenal glands: No mass is seen. Lymph nodes: Within normal limits. Abdominal Aorta: Abdominal portion non-dilated. Atherosclerosis is present. PELVIS: Bladder:Unremarkable as visualized. Bowel: There is stool throughout the colon suggesting constipation. No evidence of bowel obstruction is present. No significant bowel wall thickening is present. Appendix is unremarkable. Peritoneal cavity: No ascites, collection or mesenteric inflammatory response. No free air. Reproductive organs: Status post hysterectomy. Bones: Within normal limits. Soft Tissues: Within normal limits. IMPRESSION: 1. Large amount of stool in the colon suggesting constipation. 2. Otherwise no acute abdominal or pelvic process. RADIATION DOSE DELIVERED: 1,016.93mGy.cm Total DLP DATA REPOSITORY: All CT scans at this facility are submitted to the National Radiology Data Registry (NRDR) Dose Index Registry (DIR) with the [employer] (A[employer]). RADIATION OPTIMIZATION: All CT scans at this facility use at least one of these dose optimization te chniques: automated exposure control; mA and/or kV adjustment per patient size (includes targeted exa ms where dose is matched to clinical indication); or iterative reconstruction.
--- NOTE | 2022-09-23 10:04 | DI.VRAD_ITS ---
PROCEDURE INFORMATION: Exam: CT Abdomen And Pelvis Without Contrast Exam date and time: 09/23/2022 9:12 AM Age: 47 years old Clinical indication: Abdominal pain TECHNIQUE: Imaging protocol: Computed tomography of the abdomen and pelvis without contrast. COMPARISON: CR XR PORTABLE CHEST AP 05/14/2022 2:32 AM FINDINGS: Liver: Normal. No mass. Gallbladder and bile ducts: Normal. No calcified stones. No ductal dilation. Pancreas: Normal. No ductal dilation. Spleen: Normal. No splenomegaly. Adrenal glands: Normal. No mass. Kidneys and ureters: There is no evidence of renal or ureteral calcifications. Stomach and bowel: Findings consistent with constipation. No bowel obstruction. No mucosal thickening Appendix: Normal appendix Intraperitoneal space: Minimal free fluid in the pelvis Vasculature: Unremarkable. No abdominal aortic aneurysm. Lymph nodes: Unremarkable. No enlarged lymph nodes. Urinary bladder: Unremarkable as visualized. Reproductive: Surgical resection of the uterus Bones/joints: Unremarkable. No acute fracture. Soft tissues: Unremarkable. IMPRESSION: No acute process Dictated and Authenticated by: Mayela Wood MD. Ordering:JOSUE Young MD
[2022-09-23] MEDS: Phenazopyridine 200 MG TAB PO (10:25)
[2022-09-23 10:29] VITALS: BP 111/83; PULSE 81; RESP 16; TEMP 36.6; O2SAT 97
[2022-09-23 10:33] LABS: Troponin I < 50 ng/L (<or=60)
--- NOTE | 2022-09-23 11:08 | ED.GENADUL_ITS ---
Discharge Plan Disposition Patient Disposition: Home Condition: Stable Discharge Details Clinical Impression: Pyelonephritis, Elevated LFTs Primary Care Provider: Donal Goff ED Provider: Hannah Head Home Meds and New Rx's Prescriptions: New cefpodoxime 200 mg tablet 200 mg PO BID Qty: 20 0RF Rx Instructions: must administer with a meal/food phenazopyridine [Pyridium] 200 mg tablet 200 mg PO TID PRNQty: 5 0RF Continued ibuprofen [Advil] 200 MG tablet 600 mg PO Q6H PRN PRN fluoxetine 20 mg Tablet 20 mg PO DAILY oxybutynin chloride 5 mg Tablet 5 mg PO DAILY vitamin B complex Capsule 1 cap PO DAILY levothyroxine 13 mcg Capsule PO cholecalciferol (vitamin D3) 100 mcg (4,000 unit) Capsule 100 mcg PO DAILY buprenorphine HCl 8 mg Tablet, Sublingual 12 mg SUBLINGUAL DAILY Discharge Instructions Instructions: Urinary Tract Infection in Women (ED) Additional Instructions: please take antibiotic as prescribed Yogurt daily while on antibiotic have your liver function tests rechecked by your doctor Take Pyridium as needed for burning discomfort Should he develop fever, chills, inability to take her medication, or with any new or worsening complaints, please return to the emergency department for reassessment Referrals: Donal Goff [Primary Care Provider] - 1 day Medical Decision Making This 47-year-old female who presents with dysuria, frequency and intermittent right flank pain will have CT abdomen and pelvis to exclude ureteral nephrolithiasis Urinalysis is consistent with urinary tract infection, positive for nitrates and leukocyte esterase with white blood cells Afebrile nontoxic, given Pyridium for discomfort CT abdomen and pelvis per radiology interpretation and my review does not show e vidence of obstructive uropathy Diagnostic labs are stable for patient aside from mild elevation in LFTs which patient will have checked in the outpatient setting Return precautions reviewed and patient expressed understanding Discharged home in stable condition with stable vitals, nontender anterior abdominal pain exam HPI General Date/Time Provider Initiated Documentation: 09/23/22 07:50 . HPI Narrative: This 47-year-old female presents with reports of dysuria and hematuria with intermittent right flank pain. Denies any fever or chills. Denies any nausea or vomiting. Denies risk of sexually transmitted disease or . Symptoms started approximately 3 days ago per patient. Related Data Home Medications Medication Instructions Recorded Confirmed ibuprofen 200 mg tablet (Advil) 600 mg PO Q6H PRN PRN 01/13/13 09/23/22 buprenorphine HCl 8 mg sublingual 12 mg sublingual DAILY 05/14/22 09/23/22 tablet cefpodoxime 200 mg tablet 200 mg PO BID #20 tabs 09/23/22 cholecalciferol (vitamin D3) 100 100 mcg PO DAILY 09/23/22 09/23/22 mcg (4,000 unit) capsule fluoxetine 20 mg tablet 20 mg PO DAILY 09/23/22 09/23/22 levothyroxine 13 mcg capsule mcg PO 09/23/22 oxybutynin chloride 5 mg tablet 5 mg PO DAILY 09/23/22 09/23/22 phenazopyridine 200 mg tablet 200 mg PO TID PRN 6 doses #5 tabs 09/23/22 (Pyridium) vitamin B complex 1 cap PO DAILY 09/23/22 09/23/22 Previous Rx's Medication Instructions Recorded cefpodoxime 200 mg tablet 200 mg PO BID #20 tabs 09/23/22 phenazopyridine 200 mg tablet 200 mg PO TID PRN 6 doses #5 tabs 09/23/22 (Pyridium) Allergies Allergy/AdvReac Type Severity Reaction Status Date / Time strawberries Allergy Intermediate Hives Uncoded 09/23/22 08:11 General Stated Complaint: Urinary YOGI: 3 Review of Systems All systems reviewed & are unremarkable except as noted in HPI and below PFSH All Active Problems (Updated 09/23/22 @ 11:21 by RUBEN Hernandez) Pyelonephritis (Acute) Elevated LFTs (Acute) Social History Smoking/Tobacco Use Status: Former Tobacco Use Quit Date: 04/09/22 Smoking risk assessment performed?: Yes Alcohol Intake: current Alcohol Intake frequency: holidays/special occasions only Drug use: Daily Substance use type: marijuana Details: States she stopped 18 days ago Do you feel safe at home: Yes Do you feel safe in your relationship?: Yes Exam Const General: cooperative, comfortable and no acute distress Eyes Sclera: sclerae normal Resp Effort & Inspection: normal respiratory effort Auscultation: clear to auscultation bilaterally Cardio Rate: regular rate Rhythm: regular rhythm GI Inspection: normal to inspection Other: mild r cva tenderness Skin General skin exam: no rashes or lesions noted Neuro General: patient alert and patient oriented x3 Course Vital Signs Vital signs: Vital Signs Temperature 36.7 C 09/23/22 08:06 Pulse 90 09/23/22 08:06 Respiratory Rate 18 09/23/22 08:06 Blood Pressure 139/87 09/23/22 08:06 Pulse Oximetry 96 09/23/22 08:06 Temperature 36.6 C 09/23/22 10:29 Temperature Source Skin 09/23/22 10:29 Pulse 81 09/23/22 10:29 Respiratory Rate 16 09/23/22 10:29 Respiratory Effort 09/23/22 08:15 Blood Pressure 111/83 09/23/22 10:29 Blood Pressure Position Sitting 09/23/22 08:06 Pulse Oximetry 97 09/23/22 10:29 Oxygen Delivery Method Room Air 09/23/22 10:29 Oxygen Flow Rate 0 09/23/22 10:29 Pain Level 0 09/23/22 10:33 Lab/Test Results Lab/Test Results: 09/23/22 08:20 Urine - Reflex from Ua Urine Culture - Pending Laboratory Tests Range/Units 09/23/22 09/23/22 09/23/22 08:20 08:29 08:29 WBC (4.4-10.8) 10^3/uL 16.63 H RBC (3.93-5.22) 10^6/uL 4.46 Hgb (11.2-15.7) g/dL 13.3 Hct (36.0-46.0) % 39.8 MCV (80-95) fL 89 MCH (27.0-33.0) pg 29.8 MCHC (32.0-36.0) % 33.4 RDW (11.7-14.6) % 12.5 Plt Count (130-400) 10^3/uL 363 MPV (8.0-11.0) fL 10.2 Immature Gran % 0.4 Neutrophils % 84.0 Lymphocytes % 6.7 Monocytes % 7.9 Eosinophils % 0.6 Basophils % 0.4 Nucleated RBC % (0.0-0.3) % 0.0 Absolute Neutrophils (1.2-6.7) 10^3/uL 13.97 H Absolute Lymphocytes (1.2-3.4) 10^3/uL 1.11 L Absolute Monocytes (0.1-0.8) 10^3/uL 1.31 H Absolute Eosinophils (0.0-0.7) 10^3/uL 0.10 Absolute Basophils (0.0-0.2) 10^3/uL 0.07 Sodium (136-145) mmol/L 137 Potassium (3.5-5.1) mmol/L 3.7 Chloride (98-107) mmol/L 101 Carbon Dioxide (21.0-32.0) mmol/L 29.3 Anion Gap (3-11) mmol/L 6.7 BUN (7-18) mg/dL 9 Creatinine (0.55-1.02) mg/dL 1.1 H Est GFR (CKD-EPI 2020) (mL/min/1.73m2) 63.15 Glucose (74-106) mg/dL 103 Calcium (8.5-10.1) mg/dL 9.2 Total Bilirubin (0.2-1.0) mg/dL 0.4 AST (15-37) U/L 239 H ALT (14-59) U/L 108 H Alkaline Phosphatase (46-116) U/L 295 H Troponin I (<or=60) ng/L Total Protein (6.4-8.2) g/dL 8.2 Albumin (3.4-5.0) g/dL 3.9 Lipase (73-393) U/L 59 Urine Color (Yellow) Yellow Urine Clarity (Clear) Cloudy Urine pH (5-8) 7.5 Ur Specific [place] (1.005-1.025) 1.020 Urine Protein (Negative) mg/dL >=300 H Urine Ketones (Negative) mg/dL Negative Urine Blood (Negative) Moderate H Urine Nitrite (Negative) Positive H Urine Bilirubin (Negative) Negative Urine Urobilinogen (Up TO 0.2) EU/dL 1.0 H Ur Leukocyte Esterase (Negative) Small H Urine RBC (0-2) HPF 20-50 H Urine WBC (0-5) HPF 10-20 H Ur Epithelial Cells (Negative) HPF Rare Urine Crystals (Negative) HPF Negative Urine Bacteria (Negative) HPF Many Urine Casts (Negative) LPF Negative Urine Mucus (Negative) Negative Ur Culture Indicated? Yes Urine Glucose (Negative) mg/dL Negative Range/Units 09/23/22 08:29 WBC (4.4-10.8) 10^3/uL RBC (3.93-5.22) 10^6/uL Hgb (11.2-15.7) g/dL Hct (36.0-46.0) % MCV (80-95) fL MCH (27.0-33.0) pg MCHC (32.0-36.0) % RDW (11.7-14.6) % Plt Count (130-400) 10^3/uL MPV (8.0-11.0) fL Immature Gran % Neutrophils % Lymphocytes % Monocytes % Eosinophils % Basophils % Nucleated RBC % (0.0-0.3) % Absolute Neutrophils (1.2-6.7) 10^3/uL Absolute Lymphocytes (1.2-3.4) 10^3/uL Absolute Monocytes (0.1-0.8) 10^3/uL Absolute Eosinophils (0.0-0.7) 10^3/uL Absolute Basophils (0.0-0.2) 10^3/uL Sodium (136-145) mmol/L Potassium (3.5-5.1) mmol/L Chloride (98-107) mmol/L Carbon Dioxide (21.0-32.0) mmol/L Anion Gap (3-11) mmol/L BUN (7-18) mg/dL Creatinine (0.55-1.02) mg/dL Est GFR (CKD-EPI 2020) (mL/min/1.73m2) Glucose (74-106) mg/dL Calcium (8.5-10.1) mg/dL Total Bilirubin (0.2-1.0) mg/dL AST (15-37) U/L ALT (14-59) U/L Alkaline Phosphatase (46-116) U/L Troponin I (<or=60) ng/L < 50 Total Protein (6.4-8.2) g/dL Albumin (3.4-5.0) g/dL Lipase (73-393) U/L Urine Color (Yellow) Urine Clarity (Clear) Urine pH (5-8) Ur Specific [place] (1.005-1.025) Urine Protein (Negative) mg/dL Urine Ketones (Negative) mg/dL Urine Blood (Negative) Urine Nitrite (Negative) Urine Bilirubin (Negative) Urine Urobilinogen (Up TO 0.2) EU/dL Ur Leukocyte Esterase (Negative) Urine RBC (0-2) HPF Urine WBC (0-5) HPF Ur Epithelial Cells (Negative) HPF Urine Crystals (Negative) HPF Urine Bacteria (Negative) HPF Urine Casts (Negative) LPF Urine Mucus (Negative) Ur Culture Indicated? Urine Glucose (Negative) mg/dL
== END 2022-09-23 10:37 | disposition home or self-care (01) ==
PROVIDERS: Emergency Provider Physician Assistant; PCP Family Medicine
DX: N12 Tubulo-interstitial nephritis, not specified as acute or chronic (principal); R79.89 Other specified abnormal findings of blood chemistry
CPT/HCPCS: 36415; 80053; 83690; 87077; 93005; 99284; 74176; 81003; 81015; 84484; 85025; 87086; 87186; 93010

== ENCOUNTER 2022-10-09 16:15 | Outpatient (REF) | payer MEDICAID, SELFPAY ==
[2022-10-09 21:19] LABS: ALT 27 U/L (14-59); AST 29 U/L (15-37); Albumin 3.8 g/dL (3.4-5.0); Alkaline Phosphatase 148 U/L (46-116); Anion Gap 6.2 mmol/L (3-11); BUN 11 mg/dL (7-18); Bilirubin, Total 0.3 mg/dL (0.2-1.0); CO2 28.8 mmol/L (21.0-32.0); CREATININE 1.2 mg/dL (0.55-1.02); Calcium 9.3 mg/dL (8.5-10.1); Chloride 102 mmol/L (98-107); Estimated GFR 56.89 (mL/min/1.73m2); Glucose 91 mg/dL (74-106); Potassium 3.9 mmol/L (3.5-5.1); Sodium 137 mmol/L (136-145); TSH (W/Ref FT4) 4.25 uIU/mL (0.36-3.74); Total Protein 7.6 g/dL (6.4-8.2)
[2022-10-09 21:33] LABS: Vitamin D 25 Total 53.3 ng/mL (30-100)
[2022-10-09 21:38] LABS: FREE T4 0.66 ng/dL (0.76-1.46)
[2022-10-11 10:42] LABS: Hepatitis A Antibody IgM Negative (Negative); Hepatitis B Core Antibody Negative (Negative); Hepatitis B surface Ag Negative (Negative); Hepatitis C Ab w Rflx HCV PCR Negative (Negative)
== END 2022-10-09 16:16 | disposition home or self-care (01) ==
LOC: NCHCN 16:15
PROVIDERS: PCP Family Medicine; Visit Provider Family Medicine
DX: R79.89 Other specified abnormal findings of blood chemistry (principal); E55.9 Vitamin D deficiency, unspecified; E03.9 Hypothyroidism, unspecified; R94.5 Abnormal results of liver function studies
CPT/HCPCS: 80053; 82306; 86704; 86709; 86803; 87340; 84439; 84443

== ENCOUNTER 2023-01-14 19:15 | Outpatient (REF) | payer MEDICAID, SELFPAY ==
[2023-01-14 22:18] LABS: ALT 40 U/L (14-59); AST 45 U/L (15-37); Albumin 3.7 g/dL (3.4-5.0); Alkaline Phosphatase 175 U/L (46-116); Anion Gap 6.9 mmol/L (3-11); BUN 11 mg/dL (7-18); Bilirubin, Total 0.2 mg/dL (0.2-1.0); CO2 30.1 mmol/L (21.0-32.0); CREATININE 1.2 mg/dL (0.55-1.02); Calcium 9.2 mg/dL (8.5-10.1); Chloride 102 mmol/L (98-107); Estimated GFR 56.89 (mL/min/1.73m2); Glucose 92 mg/dL (74-106); Potassium 4.2 mmol/L (3.5-5.1); Sodium 139 mmol/L (136-145); TSH 0.95 uIU/mL (0.36-3.74); Total Protein 7.6 g/dL (6.4-8.2)
[2023-01-16 09:40] LABS: Hepatitis C Ab w Rflx HCV PCR Negative (Negative)
[2023-01-16 10:01] LABS: HIV-1/2 Ag & Ab Screen Negative (Negative)
== END 2023-01-14 19:16 | disposition home or self-care (01) ==
LOC: NCHCN 19:15
PROVIDERS: PCP Family Medicine; Visit Provider Family Medicine
DX: F11.21 Opioid dependence, in remission (principal); E03.9 Hypothyroidism, unspecified; Z11.4 Encounter for screening for human immunodeficiency virus [HIV]; Z11.59 Encounter for screening for other viral diseases
CPT/HCPCS: 80053; 86803; 87389; 84443

== ENCOUNTER 2023-02-11 15:50 | Outpatient (REF) | payer MEDICAID, SELFPAY ==
[2023-02-11 16:36] LABS: GGT 211 U/L (5-55)
[2023-02-12 18:14] LABS: ALT 40 U/L (14-59); AST 36 U/L (15-37); Albumin 3.9 g/dL (3.4-5.0); Alkaline Phosphatase 153 U/L (46-116); Bilirubin, Direct 0.1 mg/dL (0.0-0.2); Bilirubin, Total 0.3 mg/dL (0.2-1.0); Total Protein 7.8 g/dL (6.4-8.2)
[2023-02-13 12:14] LABS: ANA Interpretation Negative (Negative)
== END 2023-02-11 15:51 | disposition home or self-care (01) ==
LOC: NCHCN 15:50
PROVIDERS: PCP Family Medicine; Visit Provider Family Medicine
DX: R79.89 Other specified abnormal findings of blood chemistry (principal); R74.8 Abnormal levels of other serum enzymes; R94.5 Abnormal results of liver function studies
CPT/HCPCS: 80076; 82977; 86038

== ENCOUNTER 2023-04-02 10:51 | Outpatient (REF) | payer MEDICAID, SELFPAY ==
[2023-04-02 14:31] LABS: HCT 41.1 % (36.0-46.0); HGB 13.7 g/dL (11.2-15.7); MCHC 33.3 % (32.0-36.0); MCV 87 fL (80-95); MPV 11.1 fL (8.0-11.0); Platelet Count 333 10^3/uL (130-400); RBC 4.72 10^6/uL (3.93-5.22); RDW 12.6 % (11.7-14.6); RDW-SD 40.1 fL; WBC 6.58 10^3/uL (4.4-10.8)
[2023-04-02 15:27] LABS: ALT 28 U/L (14-59); AST 31 U/L (15-37); Albumin 3.8 g/dL (3.4-5.0); Alkaline Phosphatase 130 U/L (46-116); Anion Gap 8.8 mmol/L (3-11); BUN 9 mg/dL (7-18); Bilirubin, Total 0.4 mg/dL (0.2-1.0); CO2 26.2 mmol/L (21.0-32.0); CREATININE 1.2 mg/dL (0.55-1.02); Calcium 9.3 mg/dL (8.5-10.1); Chloride 103 mmol/L (98-107); Estimated GFR 56.89 (mL/min/1.73m2); Glucose 93 mg/dL (74-106); Potassium 3.9 mmol/L (3.5-5.1); Sodium 138 mmol/L (136-145); TSH (W/Ref FT4) 4.69 uIU/mL (0.36-3.74); Total Protein 7.9 g/dL (6.4-8.2)
[2023-04-02 16:40] LABS: Vitamin D 25 Total 49.6 ng/mL (30-100)
[2023-04-02 17:44] LABS: FREE T4 0.75 ng/dL (0.76-1.46)
[2023-04-03 10:17] LABS: Lyme Ab w Rflx to Lyme Confirm Negative (Negative)
[2023-04-06 07:55] LABS: Anaplasma phagocytophilum Negative (Negative); B. miyamotoi PCR Negative (Negative); Babesia divergens/MO-1 Negative (Negative); Babesia duncani Negative (Negative); Babesia microti Negative (Negative); Ehrlichia chaffeensis Negative (Negative); Ehrlichia ewingii/canis Negative (Negative); Ehrlichia muris eauclairensis Negative (Negative)
== END 2023-04-02 10:52 | disposition home or self-care (01) ==
LOC: NCHCN 10:51
PROVIDERS: PCP Family Medicine; Visit Provider Family Medicine
DX: E55.9 Vitamin D deficiency, unspecified (principal); R79.89 Other specified abnormal findings of blood chemistry; E66.3 Overweight; E03.9 Hypothyroidism, unspecified; R53.83 Other fatigue
CPT/HCPCS: 80053; 82306; 85027; 87798; 84439; 84443; 86618

== ENCOUNTER 2023-06-04 16:59 | Outpatient (REF) | payer MEDICAID, SELFPAY ==
[2023-06-04 16:08] LABS: ALT 30 U/L (14-59); AST 38 U/L (15-37); Albumin 3.9 g/dL (3.4-5.0); Alkaline Phosphatase 127 U/L (46-116); Bilirubin, Direct 0.1 mg/dL (0.0-0.2); Bilirubin, Total 0.2 mg/dL (0.2-1.0); TSH 0.89 uIU/mL (0.36-3.74); Total Protein 8.3 g/dL (6.4-8.2)
== END 2023-06-04 17:00 | disposition home or self-care (01) ==
LOC: NCHCN 16:59
PROVIDERS: PCP Family Medicine; Visit Provider Family Medicine
DX: E03.9 Hypothyroidism, unspecified (principal); R79.89 Other specified abnormal findings of blood chemistry
CPT/HCPCS: 80076; 84443

== ENCOUNTER 2023-08-27 20:38 | Outpatient (REF) | payer MEDICAID, SELFPAY ==
[2023-08-27 21:01] LABS: ALT 51 U/L (14-59); AST 65 U/L (15-37); Albumin 3.7 g/dL (3.4-5.0); Alkaline Phosphatase 163 U/L (46-116); Bilirubin, Direct < 0.1 mg/dL (0.0-0.2); Bilirubin, Total 0.2 mg/dL (0.2-1.0); Total Protein 7.8 g/dL (6.4-8.2)
== END 2023-08-27 20:39 | disposition home or self-care (01) ==
LOC: NCHCN 20:38
PROVIDERS: PCP Family Medicine; Visit Provider Family Medicine
DX: F11.21 Opioid dependence, in remission (principal)
CPT/HCPCS: 80076

== ENCOUNTER 2023-11-19 17:40 | Outpatient (REF) | payer MEDICAID, SELFPAY ==
[2023-11-19 21:22] LABS: ALT 35 U/L (14-59); AST 38 U/L (15-37); Albumin 3.8 g/dL (3.4-5.0); Alkaline Phosphatase 173 U/L (46-116); Bilirubin, Direct 0.1 mg/dL (0.0-0.2); Bilirubin, Total 0.2 mg/dL (0.2-1.0)
== END 2023-11-19 17:41 | disposition home or self-care (01) ==
LOC: NCHCN 17:40
PROVIDERS: PCP Family Medicine; Visit Provider Family Medicine
DX: R79.89 Other specified abnormal findings of blood chemistry (principal); R94.5 Abnormal results of liver function studies
CPT/HCPCS: 80076

== ENCOUNTER 2024-03-10 22:22 | Outpatient (REF) | payer MEDICAID, SELFPAY ==
[2024-03-10 22:10] LABS: ALT 33 U/L (14-59); AST 37 U/L (15-37); Albumin 4.1 g/dL (3.4-5.0); Alkaline Phosphatase 144 U/L (46-116); Anion Gap 7.3 mmol/L (3-11); BUN 9 mg/dL (7-18); Bilirubin, Total 0.35 mg/dL (0.2-1.0); CO2 31.7 mmol/L (21.0-32.0); Calcium 9.4 mg/dL (8.5-10.1); Chloride 102 mmol/L (98-107); Glucose 93 mg/dL (74-106); Potassium 4.5 mmol/L (3.5-5.1); Sodium 141 mmol/L (136-145); Total Protein 7.7 g/dL (6.4-8.2); Vitamin B12 510 pg/mL (193-986); Vitamin D 25 Total 44.7 ng/mL (30-100)
[2024-03-10 22:31] LABS: CREATININE 1.2 mg/dL (0.55-1.02); Estimated GFR 56.54 (mL/min/1.73m2); GGT 192 U/L (5-55); TSH 0.65 uIU/Ml (0.36-3.74)
== END 2024-03-10 22:23 | disposition home or self-care (01) ==
LOC: NCHCN 22:22
PROVIDERS: PCP Family Medicine; Visit Provider Family Medicine
DX: E03.9 Hypothyroidism, unspecified (principal); E55.9 Vitamin D deficiency, unspecified; R74.8 Abnormal levels of other serum enzymes; E53.8 Deficiency of other specified B group vitamins
CPT/HCPCS: 80053; 82306; 82607; 82977; 84443

== ENCOUNTER 2024-03-12 23:54 | Emergency (ER) | payer MEDICAID, SELFPAY ==
[2024-03-12 23:56] VITALS: BP 193/117; PULSE 109; RESP 22; TEMP 36.1; O2SAT 98
[2024-03-13] MEDS: Droperidol 5 MG/2 ML VIAL 1.25 MG IVP (00:14)
[2024-03-13 00:43] LABS: Abs Immature Grans 0.06 10^3/uL (0.0-0.06); Absolute Basophil Count 0.06 10^3/uL (0.0-0.2); Absolute Eosinophil Count 0.07 10^3/uL (0.0-0.7); Absolute Lymphocyte Count 1.89 10^3/uL (1.2-3.4); Absolute Neutrophil Count 7.44 10^3/uL (1.2-6.7); Basophils % 0.6 %; Eosinophils % 0.7 %; HCT 43.8 % (36.0-46.0); HGB 14.9 g/dL (11.2-15.7); Immature Grans % 0.6 %; Lymphocytes % 18.1 %; MCH 29.3 pg (27.0-33.0); MCV 86 fL (80-95); MPV 11.2 fL (8.0-11.0); Monocytes % 8.6 %; Neutrophils % 71.4 %; Platelet Count 325 10^3/uL (130-400); RBC 5.08 10^6/uL (3.93-5.22); RDW 12.3 % (11.7-14.6); RDW-SD 38.9 fL; WBC 10.42 10^3/uL (4.4-10.8)
[2024-03-13] MEDS: Normal Saline 1,000 ML 1000 ML IV (00:50)
[2024-03-13 00:59] LABS: ALT 29 U/L (14-59); AST 29 U/L (15-37); Albumin 4.3 g/dL (3.4-5.0); Alkaline Phosphatase 144 U/L (46-116); Anion Gap 11.6 mmol/L (3-11); BUN 7 mg/dL (7-18); Bilirubin, Total 0.24 mg/dL (0.2-1.0); CO2 27.4 mmol/L (21.0-32.0); CREATININE 1.3 mg/dL (0.55-1.02); Calcium 9.7 mg/dL (8.5-10.1); Chloride 100 mmol/L (98-107); Estimated GFR 51.36 (mL/min/1.73m2); Glucose 114 mg/dL (74-106); Lipase 35 U/L (16-77); Potassium 3.5 mmol/L (3.5-5.1); Sodium 139 mmol/L (136-145); Total Protein 8.6 g/dL (6.4-8.2)
[2024-03-13 01:32] LABS: Bilirubin Negative (Negative); Blood Negative (Negative); Clarity Sl Cloudy (Clear); Glucose Negative (Negative); Ketones Negative (Negative); Leukocyte Esterase Negative (Negative); Nitrite Negative (Negative); Urobilinogen 0.2 mg/dL (Up to 0.2); pH 8.5 (5-8)
--- NOTE | 2024-03-13 01:45 | RT.EKG_ITS ---
APPROVED REPORT Exam: Resting ECG Reason for Exam: chest pain Patient Location: E HR:69 bpm ECG Measurements Heart Rate 69 AXIS OH 139 P 73 QRSd 86 QRS 75 QT 397 T 36 QTc 427 Conclusion Sinus arrhythmia...V-rate 54- 86, variation>10% Atrial premature complex...SV complex w/ short R-R interval appropriate intervals no ST segment or T wave abnormalities to suggest occlusive AR
--- NOTE | 2024-03-13 01:45 | DI.CT_ITS ---
Exam(s) CT ABDOMEN PELVIS W EXAM: CT ABDOMEN PELVIS W CLINICAL HISTORY: RLQ abd pain. TECHNIQUE: Imaging Protocol: Axial computed tomography images with coronal and sagittal reformatted images were created and reviewed CONTRAST MATERIAL: Intravenous: Omnipaque-350 100cc Oral: None COMPARISON: CT CT ABDOMEN PELVIS WO from 09/23/2022 FINDINGS: VISUALIZED LUNG BASES: 3 tiny benign-appearing nodules in the left lower lobe appear unchanged. On t he opposite-right side there is a pleural based 5 mm nodular density in the anterior basal segment of the right lower lobe. Difficult to determine if previously present as the prior abdominal CT scan d id not go as high as the present study. There is also a 2 millimeter nodule in the lateral segment o f the right middle lobe noted, also this area not visualized on prior CT scan.. There are no pleural effusions. ABDOMEN: There is no ascites. LIVER: There are no focal hepatic lesions evident. No dilated intrahepatic ducts. GALLBLADDER/BILIARY: No obvious gallbladder pathology. CBD is not dilated. PANCREAS: No evidence of pancreatic mass nor dilatation of the pancreatic duct. SPLEEN: Spleen is not enlarged. No obvious intrasplenic lesions. Splenic and portal veins are paten t. ADRENALS: There are no significant adrenal masses. KIDNEYS:Right kidney unremarkable. There is a small cyst in the lateral cortex of the left kidney wh ich measures 0.8 cm and does not require further imaging investigation. There are no solid renal mas ses nor calculi nor hydronephrosis. No obvious findings in the urinary bladder. ABDOMINAL AORTA: Abdominal aorta is not enlarged. LYMPH NODES:There is no retroperitoneal nor paraaortic adenopathy. ABDOMINAL WALL: There are bilateral relatively symmetrical subcutaneous densities in the anterior sub cutaneous fat over the abdomen which are probably injection sites. No evidence of abscess. GI: There is no evidence of bowel obstruction, free air, nor abscess. Mild fat halo sign seen throughout the colon. PELVIS: GI: No evidence of appendicitis.No evidence of sigmoid diverticulitis. LYMPH NODES: There is no intrapelvic nor inguinal adenopathy. REPRODUCTIVE: Uterus is surgically absent.. Ovaries are not identified and are possibly surgically a bsent. There is a small amount of free fluid in the dependent aspect of the pelvis, right of center and adjacent to nondilated small bowel loops. URINARY BLADDER: No calculi nor obvious masses evident OSSEOUS: No fractures and no significant osseous lesions. Sacroiliac joints appear unremarkable. No disc space narrowing. IMPRESSION: 1. Appearance of the colon as above, possibly just related to under distension, as the areas of the c olon which contain fecal material do not exhibit similar appearance. Nevertheless, correlation with any clinical signs of colitis recommended. There is a small amount of free fluid in the pelvis. 2. No evidence of acute appendicitis. Also no evidence of diverticulitis. 3. Previous hysterectomy. 4. There are small nodules in the partially visualized lung watts. Probable benign appearance of th jose nodules but recommend follow-up chest CT scan RADIATION DOSE DELIVERED: 921.47mGy.cm Total DLP DATA REPOSITORY: All CT scans at this facility are submitted to the National Radiology Data Registry (NRDR) Dose Index Registry (DIR) with the [employer] ([employer]). RADIATION OPTIMIZATION: All CT scans at this facility use at least one of these dose optimization te chniques: automated exposure control; mA and/or kV adjustment per patient size (includes targeted exa ms where dose is matched to clinical indication); or iterative reconstruction.
--- NOTE | 2024-03-13 02:04 | ED.GENADUL_ITS ---
Discharge Plan Disposition Patient Disposition: Home Condition: Good Discharge Details Clinical Impression: Colitis Primary Care Provider: Donal Goff ED Provider: Rosalba Armenta Home Meds and New Rx's Prescriptions: New ondansetron 4 mg tablet,disintegrating 4 mg PO Q8H PRNQty: 10 0RF Continued levothyroxine 13 mcg Capsule 13 mcg PO DAILY Brixadi 128 mg/0.36 mL solution, extended rel syringe 128 mg subcut Q28D Discharge Instructions Instructions: Viral gastroenteritis in adults Additional Instructions: Tylenol and ibuprofen over the counter for pain; follow the directions on the bottle. Ondansetron up to every 8 hours for vomiting. Call your primary care doctor today to schedule an appointment to be seen within the next 72 hours to followup on your visit today. Discuss your blood pressure at that visit as it is high here in the ED. Return to the emergency department for new or worsening symptoms including new/different/worse abdominal pain, inability to keep down fluids, or if you have any other concerns. Referrals: Donal Goff [Primary Care Provider] - Discharge Data Discharge Date/Time-TO BE ENTERED AT DEPARTURE: 03/13/24 03:58 HPI General Mode of arrival: ambulatory . Date/Time Provider Initiated Documentation: 03/13/24 00:06 . Limitations to Documentation: no limitations . Information obtained by: patient . HPI Narrative: 48yo F with hx substance use disorder, hypothyroid, presenting with vomiting and abdominal pain. Symptoms started around 10pm, frequent nonbloody nonbilious emesis since then. Has not been able to keep anything down. Also crampy right sided abdominal pain over the same period of time. No diarrhea. Some epigastric pain earlier after vomiting, not currently present. Otherwise in her usual saute of health with no fevers, chills, rash, chest pain, shortness of breath, dysuria, hematuria, unusual vaginal discharge or bleeding, or other concerns. Related Data Home Medications Medication Instructions Recorded Confirmed levothyroxine 13 mcg capsule 13 mcg PO DAILY 09/23/22 03/13/24 buprenorphine 128 mg/0.36 mL 128 mg subcut Q28D 03/13/24 03/13/24 solution,ext.rel.subcutaneous syringe (Brixadi Monthly) ondansetron 4 mg disintegrating 4 mg PO Q8H PRN #10 tabs 03/13/24 tablet Previous Rx's Medication Instructions Recorded ondansetron 4 mg disintegrating 4 mg PO Q8H PRN #10 tabs 03/13/24 tablet Allergies Allergy/AdvReac Type Severity Reaction Status Date / Time strawberries Allergy Intermediate Hives Uncoded 09/23/22 08:11 General Stated Complaint: Nausea/Vomit/Diar YOGI: 3 Review of Systems Narrative: see HPI Exam Narrative Exam Narrative: General: Alert, well appearing, well nourished, in no acute distress. Head: Normocephalic, atraumatic Neck: Trachea midline, ?Neck supple. ENT: ?MMM.? Cardiac: ?RRR, no murmurs appreciated Resp: No respiratory distress. CTAB. Abd: ?Soft, non-distended, TTP of RLQ with voluntary guarding. : ?No suprapubic tenderness. Extremities: ?No deformities.? No peripheral edema. Neurologic: GCS 15. ? Moves all extremities freely against gravity Course Vital Signs Vital signs: Vital Signs Temperature 36.1 C L 03/12/24 23:56 Pulse 109 H 03/12/24 23:56 Respiratory Rate 22 03/12/24 23:56 Blood Pressure 193/117 H 03/12/24 23:56 Pulse Oximetry 98 03/12/24 23:56 Temperature 36.1 C L 03/12/24 23:56 Pulse 109 H 03/12/24 23:56 Respiratory Rate 22 03/12/24 23:56 Respiratory Effort Normal, Non-Labored 03/13/24 00:00 Blood Pressure 193/117 H 03/12/24 23:56 Blood Pressure Position Sitting 03/12/24 23:56 Pulse Oximetry 98 03/12/24 23:56 Oxygen Delivery Method Room Air 03/12/24 23:56 Oxygen Flow Rate 0 03/12/24 23:56 Lab/Test Results Lab/Test Results: Laboratory Tests Range/Units 03/13/24 03/13/24 00:05 00:47 WBC (4.4-10.8) 10^3/uL 10.42 RBC (3.93-5.22) 10^6/uL 5.08 Hgb (11.2-15.7) g/dL 14.9 Hct (36.0-46.0) % 43.8 MCV (80-95) fL 86 MCH (27.0-33.0) pg 29.3 MCHC (32.0-36.0) % 34.0 RDW (11.7-14.6) % 12.3 Plt Count (130-400) 10^3/uL 325 MPV (8.0-11.0) fL 11.2 H Immature Gran % % 0.6 Neutrophils % % 71.4 Lymphocytes % % 18.1 Monocytes % % 8.6 Eosinophils % % 0.7 Basophils % % 0.6 Nucleated RBC % (0.0-0.3) % 0.0 Absolute Neutrophils (1.2-6.7) 10^3/uL 7.44 H Absolute Lymphocytes (1.2-3.4) 10^3/uL 1.89 Absolute Monocytes (0.1-0.8) 10^3/uL 0.90 H Absolute Eosinophils (0.0-0.7) 10^3/uL 0.07 Absolute Basophils (0.0-0.2) 10^3/uL 0.06 Sodium (136-145) mmol/L 139 Potassium (3.5-5.1) mmol/L 3.5 D Chloride (98-107) mmol/L 100 Carbon Dioxide (21.0-32.0) mmol/L 27.4 Anion Gap (3-11) mmol/L 11.6 H BUN (7-18) mg/dL 7 Creatinine (0.55-1.02) mg/dL 1.3 H Est GFR (CKD-EPI 2020) (mL/min/1.73m2) 51.36 Glucose (74-106) mg/dL 114 H Calcium (8.5-10.1) mg/dL 9.7 Total Bilirubin (0.2-1.0) mg/dL 0.24 AST (15-37) U/L 29 ALT (14-59) U/L 29 Alkaline Phosphatase (46-116) U/L 144 H Total Protein (6.4-8.2) g/dL 8.6 H Albumin (3.4-5.0) g/dL 4.3 Lipase (16-77) U/L 35 Urine Color (Yellow) Yellow Urine Clarity (Clear) Sl Cloudy Urine pH (5-8) 8.5 H Ur Specific [place] (1.005-1.025) 1.020 Urine Protein (Neg-Trace) mg/dL Negative Urine Ketones (Negative) mg/dL Negative Urine Blood (Negative) Negative Urine Nitrite (Negative) Negative Urine Bilirubin (Negative) Negative Urine Urobilinogen (Up to 0.2) mg/dL 0.2 Ur Leukocyte Esterase (Negative) Negative Urine Glucose (Negative) mg/dL Negative Medical Decision Making 48yo F with hx substance use disorder, hypothyroid, presenting with vomiting and abdominal pain. Hypertensive and slightly tachycardiac on arrival. Appears well hydrated on exam, doese have RLQ tenderness with voluntary guarding. Droperidol/tylenol/toradol for symptoms, 1L IVFB. Not overtly septic, would not treat empirically. With tenderness will get CT to eval for acute intrabdominal pathology. History & exam less likely ovarian/pelvic pathology, would not transfer for ultrasound. Labs reviewed as below, CBC reassuring with no leukocytosis or anemia, CMP with no actionable abnormalities, lipase normal (unlikely pancreatitis), UA not infected. Vomiting resolved after medication; pt does now report return of epigastric/chest pain. Given GI cocktail. EKG with SR, appropriate intervals, no ST segment or T wave abnormalities to suggest occlusive SC. Troponin sent and negative, HEART score 0; would not further pursue ACS. CT abd pelvis independently reviewed, no bowel obstruction or free fluid, agree with radiology read below consistent with collitits. On reassessment she is well appearing, reports improving symptoms. Repeat vital signs reassuring, HR in 70's though remains hypertensive. PO challenged and tolerated well. Discharged home with short course of zofran. Discharge instructions and return precautions were reviewed with patient who verbalized understanding. All questions were answered and she is in full agreement with the plan. Imaging Data Radiologic Study: Imaging: CT Scan Radiologist's impression: IMPRESSION: 1. Colonic thickening, most pronounced in the descending colon and sigmoid, suboptimally evaluated due to underdistention but most consistent with colitis. 2. Thickening of the urinary bladder may be due to incomplete distension. Underlying cystitis not excluded. Please correlate clinically. 3. Ad ditional findings as above. Lab Data Lab results reviewed: Yes I reviewed the patient's lab results. Labs: Laboratory Tests Range/Units 03/13/24 03/13/24 03/13/24 00:05 00:47 02:08 WBC (4.4-10.8) 10^3/uL 10.42 RBC (3.93-5.22) 10^6/uL 5.08 Hgb (11.2-15.7) g/dL 14.9 Hct (36.0-46.0) % 43.8 MCV (80-95) fL 86 MCH (27.0-33.0) pg 29.3 MCHC (32.0-36.0) % 34.0 RDW (11.7-14.6) % 12.3 Plt Count (130-400) 10^3/uL 325 MPV (8.0-11.0) fL 11.2 H Immature Gran % % 0.6 Neutrophils % % 71.4 Lymphocytes % % 18.1 Monocytes % % 8.6 Eosinophils % % 0.7 Basophils % % 0.6 Nucleated RBC % (0.0-0.3) % 0.0 Absolute Neutrophils (1.2-6.7) 10^3/uL 7.44 H Absolute Lymphocytes (1.2-3.4) 10^3/uL 1.89 Absolute Monocytes (0.1-0.8) 10^3/uL 0.90 H Absolute Eosinophils (0.0-0.7) 10^3/uL 0.07 Absolute Basophils (0.0-0.2) 10^3/uL 0.06 Sodium (136-145) mmol/L 139 Potassium (3.5-5.1) mmol/L 3.5 D Chloride (98-107) mmol/L 100 Carbon Dioxide (21.0-32.0) mmol/L 27.4 Anion Gap (3-11) mmol/L 11.6 H BUN (7-18) mg/dL 7 Creatinine (0.55-1.02) mg/dL 1.3 H Est GFR (CKD-EPI 2020) (mL/min/1.73m2) 51.36 Glucose (74-106) mg/dL 114 H Calcium (8.5-10.1) mg/dL 9.7 Total Bilirubin (0.2-1.0) mg/dL 0.24 AST (15-37) U/L 29 ALT (14-59) U/L 29 Alkaline Phosphatase (46-116) U/L 144 H Troponin I (< or =60) ng/L < 50 Total Protein (6.4-8.2) g/dL 8.6 H Albumin (3.4-5.0) g/dL 4.3 Lipase (16-77) U/L 35 Urine Color (Yellow) Yellow Urine Clarity (Clear) Sl Cloudy Urine pH (5-8) 8.5 H Ur Specific [place] (1.005-1.025) 1.020 Urine Protein (Neg-Trace) mg/dL Negative Urine Ketones (Negative) mg/dL Negative Urine Blood (Negative) Negative Urine Nitrite (Negative) Negative Urine Bilirubin (Negative) Negative Urine Urobilinogen (Up to 0.2) mg/dL 0.2 Ur Leukocyte Esterase (Negative) Negative Urine Glucose (Negative) mg/dL Negative Quality:SDOH Health Related Social Needs: No Data to Display PFSH All Active Problems (Updated 03/13/24 @ 03:20 by Rosalba Armenta MD) Colitis (Acute) Social History Smoking/Tobacco Use Status: Former Tobacco Use Quit Date: 04/09/22 Smoking risk assessment performed?: Yes Alcohol Intake: former Drug use: Daily Substance use type: marijuana Details: States she stopped 18 days ago Housing: apartment Do you feel safe at home: Yes Do you feel safe in your relationship?: Yes PAWSS Have you Been Recently Intoxicated or Drunk Within the Last 30 days?: No Have you Ever Experienced Previous Episodes of Alcohol Withdrawal?: No Have you ever Experienced Withdrawal Seizures?: No Have you ever Experienced Delirium Tremens(DT)s?: No Have you ever undergone Alcohol Rehabilitation Treatment (i.e, inpt ot outpatient treatment programs)?: No Have you ever Experienced Blackouts?: No Have you ever Combined Alcohol with other Downers within the last 90 days?: No Have you ever Combined Alcohol with any other Substance of Abuse during the last 90 days?: No Positive Blood Alcohol level on Presentation? [PCS.BAL]: No Evidence of Increased Autonomic Activity (i.e. HR>120, tremor, sweating, agitation, nausea)?: No Result: 0
[2024-03-13] MEDS: ACETAMINOPHEN 1,000 MG/100 ML BTL 400 MG IVPB (02:15)
[2024-03-13] MEDS: Ketorolac 15 MG/ML VIAL IVP (02:15)
[2024-03-13 02:32] LABS: Troponin I < 50 ng/L (< or =60)
[2024-03-13] MEDS: Normal Saline - Diluent 50 ML VIAL IJ (02:33)
[2024-03-13] MEDS: Omnipaque 350 MG/ML 100 ML BTL IJ (02:34)
--- NOTE | 2024-03-13 03:13 | DI.VRAD_ITS ---
PROCEDURE INFORMATION: Exam: CT Abdomen And Pelvis With Contrast Exam date and time: 03/13/2024 2:26 AM Age: 48 years old Clinical indication: Other: Rlq pain TECHNIQUE: Imaging protocol: Computed tomography of the abdomen and pelvis with contrast. Radiation optimization: All CT scans at this facility use at least one of these dose optimization techniques: automated exposure control; mA and/or kV adjustment per patient size (includes targeted exams where dose is matched to clinical indication); or iterative reconstruction. Contrast material: OMNIPAQUE 350; Contrast volume: 100 ml; Contrast route: INTRAVENOUS (IV); COMPARISON: CT ABDOMEN PELVIS WO 09/23/2022 9:12 AM FINDINGS: Diaphragm: Hiatal hernia. Liver: No focal hepatic lesion identified. Gallbladder and biliary ducts: Distended gallbladder. Pancreas: No CT evidence for acute pancreatitis. Spleen: No splenomegaly. Adrenal glands: No mass. Kidneys and ureters: Hypodense lesion in the left kidney, statistically likely to represent a cyst but indeterminate on this examination. Cannot exclude hyperdense cyst or solid lesion. Consider nonemergent followup. No hydronephrosis or CT evidence for pyelonephritis. Stomach and bowel: No intestinal obstruction is evident. There is colonic thickening, most pronounced in the descending colon and sigmoid, suboptimally evaluated due to underdistention but most consistent with colitis. Appendix: No evidence of appendicitis. Intraperitoneal space: Small amount of pelvic fluid. Vasculature: Arterial calcifications. Lymph nodes: No acute findings. Urinary bladder: The urinary bladder appears mildly thickened but is incompletely distended. Reproductive: Uterus absent. Bones/joints: No pertinent acute abnormality seen. Soft tissues: Small fat containing umbilical hernia. IMPRESSION: 1. Colonic thickening, most pronounced in the descending colon and sigmoid, suboptimally evaluated due to underdistention but most consistent with colitis. 2. Thickening of the urinary bladder may be due to incomplete distension. Underlying cystitis not excluded. Please correlate clinically. 3. Additional findings as above. Dictated and Authenticated by: Vangie Holly MD. Ordering:JIMMY Navarrete MD
[2024-03-13] MEDS: Ondansetron O.D.T. 4 MG TABEF, 3 TABS/BTL PO (03:55)
[2024-03-13 03:56] VITALS: BP 170/85; BP 193/117; PULSE 109; PULSE 77; RESP 16; RESP 22; TEMP 36.1; TEMP 36.9; O2SAT 97; O2SAT 98
== END 2024-03-13 03:58 | disposition home or self-care (01) ==
LOC: ER 03-13 04:00
PROVIDERS: Emergency Provider Student in an Organized Health Care Education/Training Program; PCP Family Medicine
DX: R11.2 Nausea with vomiting, unspecified (principal); R10.31 Right lower quadrant pain; K52.9 Noninfective gastroenteritis and colitis, unspecified; I10 Essential (primary) hypertension
CPT/HCPCS: 36415; 80053; 83690; 93005; 96361; 96374; 96375; 99285; 74177; 81003; 84484; 85025; 93010; 99283; J0131; J1790; J1885; J3490

== ENCOUNTER 2024-10-20 13:20 | Outpatient (REF) | payer MEDICAID, SELFPAY ==
[2024-10-20 22:43] LABS: ALT 40 U/L (14-59); AST 43 U/L (15-37); Alkaline Phosphatase 203 U/L (46-116); Anion Gap 7.2 mmol/L (3-11); BUN 10 mg/dL (7-18); Bilirubin, Total 0.37 mg/dL (0.2-1.0); CO2 29.8 mmol/L (21.0-32.0); CREATININE 1.2 mg/dL (0.55-1.02); Calcium 9.5 mg/dL (8.5-10.1); Chloride 101 mmol/L (98-107); Estimated GFR 56.19 (mL/min/1.73m2); Glucose 87 mg/dL (74-106); Potassium 4.4 mmol/L (3.5-5.1); Sodium 138 mmol/L (136-145); TSH (W/Ref FT4) 3.08 uIU/mL (0.36-3.74); Total Protein 8.4 g/dL (6.4-8.2); Vitamin D 25 Total 41.1 ng/mL (30-100)
== END 2024-10-20 13:21 | disposition home or self-care (01) ==
LOC: NCHCN 13:20
PROVIDERS: PCP Family Medicine; Visit Provider Family Medicine
DX: E55.9 Vitamin D deficiency, unspecified (principal); F11.21 Opioid dependence, in remission; E03.9 Hypothyroidism, unspecified
CPT/HCPCS: 80053; 82306; 84443

== ENCOUNTER 2025-04-19 21:15 | Emergency (ER) | payer MEDICAID, SELFPAY ==
[2025-04-19 21:19] VITALS: BP 172/94; PULSE 107; RESP 18; TEMP 35.6; O2SAT 98
[2025-04-19] MEDS: Droperidol 5 MG/2 ML VIAL 2.5 MG IVP (21:30)
--- NOTE | 2025-04-19 21:30 | RT.EKG_ITS ---
APPROVED REPORT Exam: Resting ECG Reason for Exam: CHEST PAIN Patient Location: E HR:91 bpm ECG Measurements Heart Rate 91 AXIS IL 134 P 74 QRSd 90 QRS 78 QT 404 T 22 QTc 497 Conclusion Unknown rhythm, irregular rate...V-rate 65-111, variation>10% Lateral infarct, age indeterminate...Q>35mS, T neg, V5-V6 I aVL
[2025-04-19 21:32] LABS: HCT 43.5 % (36.0-46.0); HGB 15.0 g/dL (11.2-15.7); MCH 29.6 pg (27.0-33.0); MCHC 34.5 % (32.0-36.0); MCV 86 fL (80-95); MPV 10.5 fL (8.0-11.0); Platelet Count 343 10^3/uL (130-400); RBC 5.06 10^6/uL (3.93-5.22); RDW 13.0 % (11.7-14.6); RDW-SD 40.5 fL; WBC 11.71 10^3/uL (4.4-10.8)
--- NOTE | 2025-04-19 21:32 | W.ED.GENAD ---
Discharge Plan Disposition Patient Disposition: Home Condition: Stable Discharge Details Clinical Impression: N&V (nausea and vomiting), Hypokalemia Primary Care Provider: Donal Goff ED Provider: Qasim Perkins Home Meds and New Rx's Prescriptions: New ondansetron 4 mg tablet,disintegrating 4 mg PO Q8H PRN (Reason: nausea and vomiting) Qty: 30 0RF Continued levothyroxine 13 mcg Capsule 13 mcg PO DAILY Brixadi 128 mg/0.36 mL solution, extended rel syringe 128 mg subcut Q28D ondansetron 4 mg tablet,disintegrating 4 mg PO Q8H PRNQty: 10 0RF Discharge Instructions Instructions: High Potassium Diet Additional Instructions: Follow-up with your primary care provider if you are having continued symptoms this week. Try to drink small frequent sips of water to stay hydrated. Your potassium level was mildly low, you can try increasinIf you feel significantly more ill or have persistent vomiting despite the nausea medication return to the emergency department for reevaluation. HPI General Mode of arrival: ambulatory. Date/Time Provider Initiated Documentation: 04/19/25 21:16. Limitations to Documentation: no limitations. Information obtained by: patient. History of Present Illness 49 year old F presents to the emergency department with the chief complaint of n/v, described as moderate, Patient started experiencing this hour(s) (5) and it has been constant. No relieving factors improve symptom(s), No exacerbating factors reported . Patient notes no other symptoms.. Patient did receive the following treatments prior to arrival, none Related Data Home Medications ?Medication ?Instructions ?Recorded ?Confirmed levothyroxine 13 mcg capsule 13 mcg PO DAILY 09/23/22 04/19/25 buprenorphine 128 mg/0.36 mL 128 mg subcut Q28D 03/13/24 04/19/25 solution,ext.rel.subcutaneous syringe (Brixadi Monthly) ondansetron 4 mg disintegrating 4 mg PO Q8H PRN #10 tabs 03/13/24 04/19/25 tablet ondansetron 4 mg disintegrating 4 mg PO Q8H PRN nausea and 04/19/25 tablet vomiting #30 tabs Previous Rx's ?Medication ?Instructions ?Recorded ondansetron 4 mg disintegrating 4 mg PO Q8H PRN #10 tabs 03/13/24 tablet ondansetron 4 mg disintegrating 4 mg PO Q8H PRN nausea and 04/19/25 tablet vomiting #30 tabs Allergies Allergy/AdvReac Type Severity Reaction Status Date / Time strawberries Allergy Intermediate Hives Uncoded 04/19/25 21:24 General Stated Complaint: Nausea/Vomit/Diar YOGI: 3 Review of Systems All systems reviewed & are unremarkable except as noted in HPI and below Constitutional Constitutional: Denies chills, Denies fever(s) and Denies weakness Cardiovascular Cardiovascular: Denies chest pain and Denies dyspnea Respiratory Respiratory: Denies cough and Denies dyspnea Gastrointestinal Gastrointestinal: Denies abdominal pain, Reports nausea and Reports vomiting Neurologic Neurologic: Denies weakness Exam Const Orientation: alert HENMT Head: normal to inspection Ears: external ears normal General nose exam: external nose normal Mouth: moist mucous membranes Eyes General: appearance normal, both eyes and all related structures Neck Neck: normal visual inspection Resp Effort & Inspection: normal respiratory effort and able to speak in complete sentences Cardio Rate: regular rate GI Palpation: soft, not firm, no guarding and not rigid Skin General skin exam: no rashes or lesions noted Neuro General: patient alert and patient oriented x3 Extrem General: normal to inspection Psych Mental Status: mental status grossly normal Course Vital Signs Vital signs: Vital Signs Temperature 35.6 C L 04/19/25 21:19 Pulse 107 H 04/19/25 21:19 Respiratory Rate 18 04/19/25 21:19 Blood Pressure 172/94 H 04/19/25 21:19 Pulse Oximetry 98 04/19/25 21:19 Temperature 35.6 C L 04/19/25 21:19 Temperature Source Tympanic 04/19/25 21:19 Pulse 107 H 04/19/25 21:19 Respiratory Rate 18 04/19/25 21:19 Blood Pressure 172/94 H 04/19/25 21:19 Blood Pressure Position Sitting 04/19/25 21:19 Pulse Oximetry 98 04/19/25 21:19 Oxygen Delivery Method Room Air 04/19/25 21:19 Oxygen Flow Rate 0 04/19/25 21:19 Pain Level 0 04/19/25 21:19 Medical Decision Making 49-year-old female who states she uses marijuana daily comes in with nausea vomiting starting around 4:00 today. She says she has an episode once or twice a year where she has uncontrolled vomiting and requires IV fluids and nausea medication. She denies any other drug use other than the marijuana and denies frequent alcohol use. She is dry heaving on arrival, she denies any severe chest pain, abdominal pain, vaginal bleeding or discharge. Her abdomen is soft and nondistended with no tenderness. Suspect cyclic vomiting versus cannabinoid hyperemesis syndrome, will check CBC CMP and lipase and treat her symptoms with IV fluids and droperidol and reassess. Given her lack of abdominal tenderness I do not feel imaging of her abdomen is indicated. Patient with mild hypokalemia and hypomagnesemia, otherwise no emergent findings. Patient is feeling significantly better and is asymptomatic and still has no abdominal tenderness. Given rapid improvement in her symptoms feel she is stable for discharge and follow-up with her PCP. Return precautions given Differential Diagnosis Differential Diagnosis: cyclic vomiting, food illness, cannabinoid hyperemesis syndrome Medical Records Medical records reviewed: Yes I reviewed the patient's medical records. Lab Data Lab results reviewed: Yes I reviewed the patient's lab results. ECG Data Attestation: I personally reviewed and interpreted this ECG (s) as follows: Prior ECG tracings: available for review Interpretation: Sinus rhythm, rate 91, no STEMI PFSH All Active Problems (Updated 04/19/25 @ 22:40 by Qasim Perkins MD) Hypokalemia (Acute) N&V (nausea and vomiting) (Acute) Social History Smoking/Tobacco Use Status: Former Tobacco Use Quit Date: 04/09/22 Smoking risk assessment performed?: Yes Alcohol Intake: current Alcohol Intake frequency: other Drug use: Daily Substance use type: marijuana Housing: apartment Do you feel safe at home: Yes Do you feel safe in your relationship?: Yes
[2025-04-19] MEDS: Normal Saline 1,000 ML 1000 ML IV (21:34)
[2025-04-19 21:44] LABS: Abs Immature Grans 0.00 10^3/uL (0.0-0.06); Immature Grans % 0.0 %; RBC Morphology Normal
[2025-04-19 22:29] LABS: ALT 26 U/L (14-59); AST 40 U/L (15-37); Albumin 3.7 g/dL (3.4-5.0); Alkaline Phosphatase 142 U/L (46-116); Anion Gap 10.8 mmol/L (3-11); BUN 5 mg/dL (7-18); Bilirubin, Direct 0.1 mg/dL (0.0-0.2); Bilirubin, Total 0.5 mg/dL (0.2-1.0); CO2 26.2 mmol/L (21.0-32.0); Calcium 8.7 mg/dL (8.5-10.1); Chloride 102 mmol/L (98-107); Estimated GFR 56.19 (mL/min/1.73m2); Glucose 129 mg/dL (74-106); HCG Qual (Serum) Negative; Lipase 21 U/L (<78); Magnesium 1.6 mg/dL (1.8-2.4); Potassium 3.0 mmol/L (3.5-5.1); Sodium 139 mmol/L (136-145); Total Protein 7.1 g/dL (6.4-8.2)
[2025-04-19 22:59] VITALS: BP 133/86; PULSE 100; RESP 22; TEMP 36.5; O2SAT 98
== END 2025-04-19 22:59 | disposition home or self-care (01) ==
LOC: ER 23:10
PROVIDERS: Emergency Provider Emergency Medicine; PCP Family Medicine
DX: R11.2 Nausea with vomiting, unspecified (principal); E87.6 Hypokalemia
CPT/HCPCS: 99284 ×2; 96374; 80053; 83690; 93005; 96361; 82248; 83735; 84703; 85025; 93010; J1790